=== PATIENT | female | born 1980 | race Caucasian/White ===

== ENCOUNTER → 2020-03-18 14:54 | Outpatient (BNVA) | payer OTHER, SELFPAY | PROVIDERS: PCP Pediatrics; Visit Provider Obstetrics & Gynecology | DX: N94.6 Dysmenorrhea, unspecified (principal); R10.2 Pelvic and perineal pain | CPT/HCPCS: 99203 ==

== ENCOUNTER 2020-08-05 17:03 | Emergency (ER) | payer OTHER, SELFPAY ==
--- NOTE | ~2020-08-05 | XR_ITS ---
EXAMINATION: XR LUMBOSACRAL SPINE CLINICAL INFORMATION: Severe back pain status post fall 4 weeks ago. COMPARISON: None TECHNIQUE: Three views of the lumbosacral spine. FINDINGS: Transitional anatomy is seen with rudimentary ribs at L1. Partial lumbarization of S1 is noted. There is normal lumbar lordosis and spinal alignment. Mild disc space narrowing is seen at L4-L5 and L5-S1. Surgical clips overlie the right upper quadrant. XR/XR lumbar spine 2-3V IMPRESSION: 1. Transitional anatomy as detailed above. Care and numbering of lumbar levels is recommended. 2. L4-L5 and L5-S1 mild degenerative disc disease.
[2020-08-05 17:45] VITALS: BP 112/80; PULSE 100; RESP 18; TEMP 36.4; O2SAT 98; BMI 45.7
[2020-08-05 18:31] VITALS: BP 163/78; PULSE 100; RESP 17; TEMP 36.8; O2SAT 98
--- NOTE | 2020-08-05 19:34 | ED_ITS ---
HPI - Back Pain/Injury General Chief Complaint: Back Pain/Injury Stated Complaint: Back pain Time Seen by Provider: 08/05/20 19:32 Source: patient Mode of arrival: ambulatory Limitations: no limitations History of Present Illness HPI Narrative: 39-year-old female came in with few weeks history of low back pain radiating to her left lower extremities, patient reported fall 4 weeks ago but pain did not start until she fell. Declined any history of IV drug abuse, no fever, having controlled bowel movement and urination, however patient documented urinary incontinence at night time because patient cannot get fast enough from bed to the bathroom due to severe lower back pain, patient otherwise stated she has a good control over her urination and bowel movement. Related Data Home Medications Medication Instructions Recorded Confirmed buprenorphine 2 mg-naloxone 0.5 mg 1 film BUCCAL DAILY 03/18/20 sublingual film buprenorphine 8 mg-naloxone 2 mg 1 film BUCCAL DAILY 03/18/20 sublingual film dextroamphetamine-amphetamine ER 20 mg PO DAILY 03/18/20 20 mg 24hr capsule,extend release lorazepam 1 mg tablet 1 mg PO DAILY PRN 03/18/20 sertraline 100 mg tablet 100 mg PO DAILY 03/18/20 topiramate 100 mg tablet 100 mg PO BID tab 03/18/20 Previous Rx's Medication Instructions Recorded ibuprofen 600 mg PO Q8H PRN #20 tab 08/05/20 Allergies Allergy/AdvReac Type Severity Reaction Status Date / Time varenicline [From CHANTIX] Allergy Intermediate HIVES Verified 08/05/20 19:50 Review of Systems Review of Systems: All other systems are reviewed and are negative Constitutional: Reports as per HPI and Reports no additional constitutional complaints Eyes: Reports as per HPI and Reports no additional eye complaints Reports system reviewed and no additional complaints, except as documented Cardiovascular: Reports as per HPI and Reports no additional cardiovascular complaints Respiratory: Reports as per HPI and Reports no additional respiratory complaints Gastrointestinal: Reports as per HPI and Reports no additional gastrointestinal complaints Genitourinary: Reports no additional female genitourinary complaints Musculoskeletal: Reports no additional musculoskeletal complaints Skin/Breast: Reports system reviewed and no additional complaints, except as docu Psychiatric: Reports no additional psychiatric complaints Endocrine: Reports no additional endocrine complaints Hematologic/Lymphatic: Reports no additional hematologic/lymphatic complaints Allergic/Immunologic: Reports no additional allergic/immunologic complaints Reports system reviewed and no additional complaints, except as documented and Reports Abnormal speech present PMFSH Past Medical History Medical History History of asthma History of depression Surgical History History of loop electrical excision procedure (LEEP) Hx of tonsillectomy Family History Family History Mother Breast cancer Maternal Grandmother Heart failure Breast cancer Social History Social History Alcohol intake: never Smoking Status: Current every day smoker Tobacco Type: Cigarette Cigarettes Per Day: 5 Years Smoked: 20 Advance Directives: No Advance Directives Information Provided: No Sexual orientation: Straight/Heterosexual Gender identity: female Physical Exam Vital Signs: Vital Signs: Last Vital Signs Temp 98.3 F 08/05/20 18:31 Pulse 100 08/05/20 18:31 Resp 17 08/05/20 18:31 BP 163/78 H 08/05/20 18:31 Pulse Ox 98 08/05/20 18:31 Body Mass Index 45.7 Vital signs have been reviewed as appeared to be correct. Blood pressure in the high range. Heart rate normal. Respiration rate normal. Temperature normal. Oxygen saturation normal. Appearance: Alert. Oriented X3. acute distress due to low back pain.. Head: Normal external exam. Normocephalic. Atraumatic. No Andrews signs noted. No raccoon eyes noted Eyes: PERRLA. EOMI. Conjunctiva and sclera normal. Eyelids normal. ENT: TM's Normal. Pharynx normal. Uvula midline. Moist mucous membranes. No trismus noted. No drooling noted. No muffled voice noted. Neck: Normal inspection. Neck supple. FROM. No adenopathy. Thyroid Normal. No meningeal signs. No neck mass noted. CVS: Normal heart rate and rhythm. Heart sound normal. No murmurs noted. Pulses normal throughout. Respiratory: No respiratory distress. Painless inspiration. Breath sounds normal. No wheezes/rales/rhonchi noted. Chest nontender. No accessory muscle usage noted or decreased air movement noted. Abdomen: Soft and nontender. Bowel sounds normal in all 4 quadrants. No distention noted. No organomegaly noted. No visible injury noted. Back: No CVA tenderness. No focal tenderness in the midline, no step-off, no deformity. Skin: Skin warm and dry. Normal skin color. Normal skin turgor. No rashes/lesions/lacerations noted. Extremities: No lower extremity edema. Extremities exhibit normal range of motion. Extremities nontender. Neuro: Oriented X 3. No motor deficit. No sensory deficit. Reflexes normal. Able to ambulate on both toes and heels bilaterally, intact perianal sensation. Course Course Course Narrative: 39-year-old female status post fall few weeks ago then started to have low back pain radiating to the left lower extremities for few weeks progressively is worsening. Physical exam is consistent with left-sided sciatica, no neurological deficit, patient feels better after was given oxycodone/NSAIDs. Will discharge on oxycodone and ibuprofen. MDM - Back Pain/Injury Lab Data Attestation: I reviewed the patient's lab results. Labs: Lab Results 08/05/20 08/05/20 Range/Units 19:47 19:48 Urine Color YELLOW Urine Appearance CLEAR Urine pH 5.5 (5.0-8.0) Ur Specific [place] >= 1.030 H (1.005-1.025) Urine Protein NEG (NEG-TRACE) MG/DL Urine Glucose (UA) NEG (NEG) MG/DL Urine Ketones 5 (NEG) MG/DL Urine Blood NEG (NEG) Urine Nitrite NEG (NEG) Ur Leukocyte Esterase NEG (NEG) Urine Test NEGATIVE (NEGATIVE) Imaging Data Lumbar spine x-ray: Radiologist's impression: Transitional anatomy is seen with rudimentary ribs at L1. Partial lumbarization of S1 is noted. There is normal lumbar lordosis and spinal alignment. Mild disc space narrowing is seen at L4-L5 and L5-S1. Surgical clips overlie the right upper quadrant. Discharge Plan Discharge Clinical Impression: Lumbar radiculopathy, Sciatica Patient Disposition: Home, Self-Care Instructions: Lumbar Radiculopathy (ED) Prescriptions: New ibuprofen 600 mg tablet 600 mg PO Q8H PRN (Reason: pain) Qty: 20 RF: 0 No Action topiramate 100 mg tablet 100 mg PO BID RF: 0 sertraline [Zoloft] 100 mg tablet 100 mg PO DAILY RF: 0 dextroamphetamine-amphetamine [Adderall XR] 20 mg capsule,extended release 24hr 20 mg PO DAILY RF: 0 lorazepam 1 mg tablet 1 mg PO DAILY PRNRF: 0 buprenorphine-naloxone [Suboxone] 8-2 mg film 1 film buccal DAILY RF: 0 buprenorphine-naloxone [Suboxone] 2-0.5 mg film 1 film buccal DAILY RF: 0 Referrals: Renu Mchugh MD [Primary Care Provider] - 2 days
[2020-08-05] MEDS: oxyCODONE HCl Immed Release 5 MG TABLET 10 MG PO (19:50)
[2020-08-05 19:57] LABS: Glucose Urine UA NEG (NEG); Leukocyte Esterase Urine NEG (NEG); Nitrite Urine NEG (NEG); PH 5.5 (5.0-8.0); Specific Gravity - Urine >= 1.030 (1.005-1.025); Urine Blood NEG (NEG); Urine Ketones 5 MG/DL (NEG); Urine Protein NEG (NEG-TRACE)
[2020-08-05 19:58] LABS: Appearance Urine CLEAR; Color Urine YELLOW
[2020-08-05 19:59] LABS: UPreg QC Valid YES; Urine Pregnancy NEGATIVE (NEGATIVE)
[2020-08-05] MEDS: Ibuprofen 800 MG TABLET PO (20:07)
== END 2020-08-05 21:00 | disposition home or self-care (01) ==
PROVIDERS: Emergency Provider Emergency Medicine; PCP Pediatrics
DX: M54.16 Radiculopathy, lumbar region (principal); M54.42 Lumbago with sciatica, left side; F17.210 Nicotine dependence, cigarettes, uncomplicated
CPT/HCPCS: 72100; 81003; 81025; 99283; 99284

== ENCOUNTER 2020-08-14 12:31 | Emergency (ER) | payer OTHER, SELFPAY ==
--- NOTE | ~2020-08-14 | MR_ITS ---
EXAMINATION: MR LUMBAR SPINE WITHOUT CONTRAST CLINICAL INFORMATION: Lower back pain radiating to left lower extremity. Numbness. COMPARISON: None TECHNIQUE: MRI of the lumbar spine was obtained using routine sequences without contrast. FINDINGS: The lumbar vertebral bodies maintain normal heights and alignment. There is disc height loss at L4-L5 and L5-S1. No subchondral marrow edema is seen. The distal spinal cord appears normal. The conus medullaris terminates normally at the L2 level. The visualized paraspinal muscles and intra-abdominal and pelvic contents are within normal limits. SPINAL LEVELS: T11-T12: Right paracentral/foraminal protrusion resulting in mild to moderate right-sided neural foraminal stenosis without foraminal nerve root compression. Mild flattening the right ventral thecal sac without significant narrowing of the spinal canal. L1-L2: No posterior disc abnormality. No spinal canal or neural foraminal stenosis. L2-L3: No posterior disc abnormality. No spinal canal or neural foraminal stenosis. L3-L4: No posterior disc abnormality. No spinal canal or neural foraminal stenosis. L4-L5: Disc bulging with focal central extrusion causing moderate spinal canal stenosis with deformity of the ventral thecal sac and narrowing of the left more than right subarticular zones. Mild to moderate facet arthropathy. Mild bilateral neural foraminal stenosis without foraminal nerve root compression. L5-S1: Disc bulging with left subarticular protrusion causing mass effect on the traversing left S1 nerve root. Mild to moderate facet arthropathy. No foraminal nerve root compression. MR/MR lumbar spine wo con IMPRESSION: At L5-S1 there is left subarticular protrusion causing mass effect on the traversing left S1 nerve root. At L4-L5 there is central extrusion causing moderate spinal canal stenosis with deformity of the ventral thecal sac with narrowing of the subarticular zones. At T11-T12 there is right paracentral/foraminal protrusion causing mild to moderate right-sided neural foraminal stenosis without foraminal nerve root compression.
[2020-08-14 12:34] VITALS: BP 147/90; PULSE 114; RESP 18; TEMP 37.1; O2SAT 97; BMI 45.7
--- NOTE | 2020-08-14 13:47 | ED.BACK ---
HPI - Back Pain/Injury General Chief Complaint: Back Pain/Injury Stated Complaint: left leg pain,no inj Time Seen by Provider: 08/14/20 12:48 Source: patient and family Mode of arrival: ambulatory Limitations: no limitations History of Present Illness HPI Narrative: 39-year-old female with a past medical history of opioid addiction currently on Suboxone, obesity, anxiety, depression and asthma presenting to the ED with complaints of lower back pain radiating to her left buttocks/left lower extremity to the left ankle for the past 1-2 months worse today despite taking multiple [id number] medications and steroids. She also reports that she had urinary incontinence due to she is unable to make it to the bathroom fast enough due to her back pain. Denies any history of IV drug usage, cancer, back surgery, kidney stones, fevers, incontinence or retention of bowels, hematuria, abdominal pain or any new injuries complaints or concerns at this time. MD elicited complaint: back pain Pertinent past history: prior back pain Onset (ago): week(s) (For the past few weeks worse today) Timing: constant and progressively worsening Severity: severe Pain scale (0-10): 10 Similar Symptoms Previously: Yes Quality: aching Location: lumbar spine Radiation: left leg below the knee Exacerbating factors: movement, supine positioning, sitting upright and walking Relieving factors: none Context: fall (Approximately 1-2 months ago) Associated symptoms: numbness and urinary incontinence Treatments prior to arrival: other (She reports she has used multiple [id number] medication and steroids and no symptomatic relief) Work related injury: No Related Data Home Medications Medication Instructions Recorded Confirmed buprenorphine 2 mg-naloxone 0.5 mg 1 film BUCCAL DAILY 03/18/20 sublingual film buprenorphine 8 mg-naloxone 2 mg 1 film BUCCAL DAILY 03/18/20 sublingual film dextroamphetamine-amphetamine ER 20 mg PO DAILY 03/18/20 20 mg 24hr capsule,extend release lorazepam 1 mg tablet 1 mg PO DAILY PRN 03/18/20 sertraline 100 mg tablet 100 mg PO DAILY 03/18/20 topiramate 100 mg tablet 100 mg PO BID tab 03/18/20 Previous Rx's Medication Instructions Recorded ibuprofen 600 mg PO Q8H PRN #20 tab 08/05/20 acetaminophen [Tylenol Extra 1,000 mg PO QID PRN #14 tab 08/14/20 Strength] cyclobenzaprine 10 mg PO Q8H #20 tab 08/14/20 ketorolac 10 mg PO Q8H PRN #20 tab 08/14/20 lidocaine [Lidoderm] 1 patch TOPICAL DAILY #15 ea 08/14/20 oxycodone 5 mg PO BID PRN #20 tab 08/14/20 prednisone 40 mg PO DAILY 5 Days #10 tab 08/14/20 Allergies Allergy/AdvReac Type Severity Reaction Status Date / Time varenicline [From CHANTIX] Allergy Intermediate HIVES Verified 08/14/20 12:34 Review of Systems Review of Systems: Constitutional : No trauma, No Weight loss, No Fever, No Chills, ENT/Mouth : No Hearing loss, No Ear Pain, No Nasal Congestion, No Sinus Pain, No Hoarseness, No sore throat, No Rhinorrhea, No Swallowing Difficulty Cardiovascular : No Chest Pain, No SOB Respiratory : No Cough, No Dyspnea Gastrointestinal : No Nausea, No Vomiting, No Diarrhea, No abdominal Pain, No Hematochezia, No Melena Genitourinary : + Urinary Incontience, No Dysuria, No Urinary Frequency, No Hematuria, No Bowel Incontinence/retention, No urinary tension. Musculoskeletal : + Back pain, No neck pain, No joint stiffness, No joint swelling Skin : No Skin Lesions, No rash or signs of infection Neuro : + paresthesias/numbness to left lower extremity, No Weakness, No radiation, No headache, no loss of bowel habits, no saddle anesthesia, Focal weakness, No radiation Denies history of IV drug usage. Yes all other systems are reviewed and are negative [facility] Past Medical History Attestation statement: The following information was validated with the patient. Medical History Opiate addiction Surgical History History of loop electrical excision procedure (LEEP) Hx of tonsillectomy Family History Family History Mother Breast cancer Maternal Grandmother Heart failure Breast cancer Social History Social History Alcohol intake: never Smoking Status: Current every day smoker Tobacco Type: Cigarette Cigarettes Per Day: 5 Years Smoked: 20 Advance Directives: No Advance Directives Information Provided: No Sexual orientation: Straight/Heterosexual Gender identity: female Physical Exam Vital Signs: Vital Signs: Last Vital Signs Temp 98.7 F 08/14/20 12:34 Pulse 114 H 08/14/20 12:34 Resp 18 08/14/20 12:34 BP 147/90 H 08/14/20 12:34 Pulse Ox 97 08/14/20 12:34 Body Mass Index 45.7 vital signs have been reviewed as normal and appeared to be correct. Blood pressure hypertensive at 147/90. Heart rate tachycardic at 114. Respiration rate normal. Temperature normal. Oxygen saturation normal. Appearance: Alert. Oriented X3. No acute distress. Head: Normal external exam. Normocephalic. Atraumatic. Eyes: PERRLA. EOMI. Conjunctiva and sclera normal. Eyelids normal. ENT: EAC normal. TM's Normal. Pharynx normal. Uvula midline. Moist mucous membranes. No trismus noted. No drooling noted. No muffled voice noted. Neck: Normal inspection. Neck supple. FROM. No adenopathy. Thyroid Normal. No meningeal signs. No neck mass noted. CVS: Normal heart rate and rhythm. Heart sound normal. No murmurs noted. Pulses normal throughout. Respiratory: No respiratory distress. Painless inspiration. Breath sounds normal. No wheezes/rales/rhonchi noted. Chest nontender. No accessory muscle usage noted or decreased air movement noted. Abdomen: Soft and nontender. Bowel sounds normal in all 4 quadrants. No distention noted. No organomegaly noted. No visible injury noted. Back: No CVA tenderness. Full range of motion noted. No obvious deformities, or edema. Mild para-spinal muscular tenderness from lumbar region to coccyx. Full ROM in back and lower extremities. 5/5 strength hip extension/flexion, abduction, adduction. Mild Lumbar pain with hip flexion against resistance. Straight leg raise test negative on right; Straight leg raise test negative on left; Reflexes normal ankle and knee bilaterally; EHL motor strength normal bilaterally. No rashes/lesion/induration/fluctuance or signs of infection noted. : Senior Information Security Consultant present Yana, PCT. Normal external visual exam. Normal sphincter tone and sensation. No external or internal hemorrhoids noted. Not consistent with rectal prolapse/fecal impaction. No lesions/anal fissures/fistula/laceration/excoriations/mass or anal tenderness noted. Normal exam. Skin: Skin warm and dry. Normal skin color. Normal skin turgor. No rashes/lesions/lacerations noted. Extremities: No lower extremity edema. Extremities exhibit normal range of motion. Extremities nontender. Able to shrug shoulders bilaterally and keep up against resistance. Neuro: Oriented X 3. No motor deficit. No sensory deficit. Reflexes normal. Moving all extremities. No focal motor deficits. Cranial nerves II-XI intact bilaterally. Gait normal. Strength 5/5 throughout. No tremor noted. No fasciculations noted. No rigidity noted. Muscle tone normal throughout. No asterixis noted. Course Course Course Narrative: Pt c likely muscular pain, but could be herniated disc. Neuro exam shows no deficits. Not c/w Pyelo/UTI/kidney stone/spinal fx. Not c/w AAA/epidural abscess/dissection. No high risk Hx (Incont, fever, immunosupp, recent surgery/LP, coag, wt loss, puls mass, hx/o Ca, TB, or IVDU) although due to recent trauma patient reporting that she is having urinary incontinence will obtain an MRI of lumbar spine to evaluate for acute processes. Obtain labs, UA, UHCG. Provide 2 mg of IM Dilaudid, 30 mg of IM Toradol and 4 mg of Zofran and then re-evaluate. Reevaluation(s) Reevaluation #1: - elevated white blood cell count at 12,000. Otherwise all other labs are within normal limits. - MRI of lumbar spine without contrast revealed IMPRESSION: At L5-S1 there is left subarticular protrusion causing mass effect on the traversing left S1 nerve root. At L4-L5 there is central extrusion causing moderate spinal canal stenosis with deformity of the ventral thecal sac with narrowing of the subarticular zones. At T11-T12 there is right paracentral/foraminal protrusion causing mild to moderate right-sided neural foraminal stenosis without foraminal nerve root compression. - therefore I consulted with Marcial Bird PA-C at [facility] and neurosurgeon and he reviewed the patient's chart including labs and MRI report and he reported as long as I felt comfortable with the patient's exam which I a.m. she has normal rectal tone/normal rectal sensation and a normal steady gait and full sensation in bilateral lower extremities no focal neuro deficits were noted or weakness therefore we made a plan to discharge her and he will see her in the office on [address] in [facility] on Sunday at 2:00pm. - therefore I instructed patient to discontinue her Suboxone while she is on the pain medications and to return if she has any worsening symptoms including urinary incontinence where she cannot feel that she actually went on herself not where she can not make it on time due to her back pain. Patient understands and agrees with this plan. Will DC home at this time. Time: 16:20 [facility] - Back Pain/Injury Medical Records Attestation: I reviewed the patient's medical records. Lab Data Attestation: I reviewed the patient's lab results. Result diagrams: 08/14/20 15:36 08/14/20 15:36 Labs: Lab Results 08/14/20 08/14/20 08/14/20 Range/Units 15:36 15:36 15:36 WBC 12.0 H (4.8-10.8) X10*3/uL RBC 4.92 (4.20-5.50) X10*6/uL Hgb 13.3 (12.0-16.0) g/dl Hct 42.6 (37-47) % MCV 86.6 (80-98) fL MCH 27.0 (27.0-33.0) pg MCHC 31.2 (31.0-35.0) g/dl RDW 14.3 (11.0-16.0) % Plt Count 352 (160-400) X10*3/uL MPV 10.3 (9.4-12.3) fL Immature Gran % (Auto) 0.3 (0.0-0.4) % Neut % (Auto) 73.3 H (45-73) % Lymph % (Auto) 22.3 (20-40) % Divide % (Auto) 3.7 (2-11) % Eos % (Auto) 0.2 (0-4) % Baso % (Auto) 0.2 (0-2) % Lymph # (Auto) 2.7 (1.2-4.9) X10*3/uL Divide # (Auto) 0.5 (0.1-1.2) X10*3/uL Eos # (Auto) 0.0 (0.0-0.4) X10*3/uL Baso # (Auto) 0.0 (0.0-0.2) X10*3/uL Abs Immat Gran (auto) 0.04 H (0.00-0.03) X10*3/uL Absolute Neuts (auto) 8.8 H (2.0-8.3) X10*3/uL Absolute Nucleated RBC 0.000 (0.0-0.012) X10*3/uL Nucleated RBC % (auto) 0.0 (0.0-0.2) /100WBC PT 13.2 H (10.8-13.0) SEC INR 1.1 (0.9-1.1) Sodium 138 (135-145) mmol/L Potassium 4.4 (3.3-5.1) mmol/L Chloride 108 (96-108) mmol/L Carbon Dioxide 20 L (22-29) mmol/L Anion Gap 14 (12-20) BUN 16 (9-16) mg/dL Creatinine 0.77 (0.5-1.4) mg/dL Estim Creat Clear Calc 119.1 Estimated GFR > 60 Random Glucose 92 (60-115) mg/dL Calcium 9.1 (8.4-10.2) mg/dL Imaging Data MRI lumbar spine without contrast: Attestation: I personally reviewed and interpreted this imaging study as follows: Radiologist's impression: FINDINGS: The lumbar vertebral bodies maintain normal heights and alignment. There is disc height loss at L4-L5 and L5-S1. No subchondral marrow edema is seen. The distal spinal cord appears normal. The conus medullaris terminates normally at the L2 level. The visualized paraspinal muscles and intra-abdominal and pelvic contents are within normal limits. SPINAL LEVELS: T11-T12: Right paracentral/foraminal protrusion resulting in mild to moderate right-sided neural foraminal stenosis without foraminal nerve root compression. Mild flattening the right ventral thecal sac without significant narrowing of the spinal canal. L1-L2: No posterior disc abnormality. No spinal canal or neural foraminal stenosis. L2-L3: No posterior disc abnormality. No spinal canal or neural foraminal stenosis. L3-L4: No posterior disc abnormality. No spinal canal or neural foraminal stenosis. L4-L5: Disc bulging with focal central extrusion causing moderate spinal canal stenosis with deformity of the ventral thecal sac and narrowing of the left more than right subarticular zones. Mild to moderate facet arthropathy. Mild bilateral neural foraminal stenosis without foraminal nerve root compression. L5-S1: Disc bulging with left subarticular protrusion causing mass effect on the traversing left S1 nerve root. Mild to moderate facet arthropathy. No foraminal nerve root compression. MR/MR lumbar spine wo con IMPRESSION: At L5-S1 there is left subarticular protrusion causing mass effect on the traversing left S1 nerve root. At L4-L5 there is central extrusion causing moderate spinal canal stenosis with deformity of the ventral thecal sac with narrowing of the subarticular zones. At T11-T12 there is right paracentral/foraminal protrusion causing mild to moderate right-sided neural foraminal stenosis without foraminal nerve root compression. Critical Care Time Critical Care Time Critical Care Time: Yes Total Critical Care Time: 60 Attestation: I personally attest to this time spent taking care of the patient Discharge Plan Discharge Clinical Impression: Back pain associated with peripheral numbness, Lumbar radiculopathy, Sciatica, Central stenosis of spinal canal, Lumbar foraminal stenosis Patient Disposition: Home, Self-Care Instructions: Sciatica (ED), Lumbar Radiculopathy (ED), Lower Back Exercises (ED) Additional Instructions: Follow-up if you develop any new or worsening symptoms especially urinary incontinence where you do not feel that you have to urinate or bowel incontinence or retention where you cannot have a bowel movement or any weakness of the lower extremity where you can actually not walk. Follow-up on Sunday with your appointment with physician payroll and benefits assistant Marcial Bird neurosurgeon at [facility]. Again return if any new or worsening symptoms. I would not take the Suboxone while you are on the narcotics. Prescriptions: New cyclobenzaprine 10 mg tablet 10 mg PO Q8H Qty: 20 RF: 0 ketorolac 10 mg tablet 10 mg PO Q8H PRN (Reason: pain) Qty: 20 RF: 0 lidocaine [Lidoderm] 5 % adhesive patch,medicated 1 patch topical DAILY Qty: 15 RF: 0 oxycodone 5 mg tablet 5 mg PO BID PRN (Reason: pain) Qty: 20 RF: 0 acetaminophen [Tylenol Extra Strength] 500 mg tablet 1,000 mg PO QID PRN (Reason: fever or pain) Qty: 14 RF: 0 prednisone 20 mg tablet 40 mg PO DAILY 5 Days Qty: 10 RF: 0 No Action ibuprofen 600 mg tablet 600 mg PO Q8H PRN (Reason: pain) Qty: 20 RF: 0 topiramate 100 mg tablet 100 mg PO BID RF: 0 sertraline [Zoloft] 100 mg tablet 100 mg PO DAILY RF: 0 dextroamphetamine-amphetamine [Adderall XR] 20 mg capsule,extended release 24hr 20 mg PO DAILY RF: 0 lorazepam 1 mg tablet 1 mg PO DAILY PRNRF: 0 buprenorphine-naloxone [Suboxone] 8-2 mg film 1 film buccal DAILY RF: 0 buprenorphine-naloxone [Suboxone] 2-0.5 mg film 1 film buccal DAILY RF: 0 Referrals: Marcial Bird PA-C [Physician Nurse Office] - 2 days (You have an appointment with Marcial Bird PA-C at 14:00 at the above address [phone]. Please do not miss your appointment.)
[2020-08-14] MEDS: Ketorolac Tromethamine 30 MG/ML VIAL IM (13:58)
[2020-08-14] MEDS: HYDROmorphone HCl 2 MG/ML VIAL IM (13:58)
[2020-08-14 15:41] LABS: MANUAL DIFF FLAG NO
[2020-08-14 15:58] LABS: Basophils Percent Auto 0.2 % (0-2); Eosinophils Percent Auto 0.2 % (0-4); Hematocrit 42.6 % (37-47); Hemoglobin 13.3 g/dl (12.0-16.0); Imm Gran Abs Auto 0.04 X10*3/uL (0.00-0.03); Imm Gran Pct Auto 0.3 % (0.0-0.4); Lymphocytes Absolute Auto 2.7 X10*3/uL (1.2-4.9); Lymphocytes Percent Auto 22.3 % (20-40); Mean Corpuscular HGB Conc 31.2 g/dl (31.0-35.0); Mean Corpuscular Volume 86.6 fL (80-98); Mean Platelet Volume 10.3 fL (9.4-12.3); Monocytes Absolute Auto 0.5 X10*3/uL (0.1-1.2); Monocytes Percent Auto 3.7 % (2-11); Neutrophils Absolute Auto 8.8 X10*3/uL (2.0-8.3); Neutrophils Percent Auto 73.3 % (45-73); Platelet Count 352 X10*3/uL (160-400); Red Blood Count 4.92 X10*6/uL (4.20-5.50); Red Cell Distribution Width 14.3 % (11.0-16.0)
[2020-08-14 16:07] LABS: INTERNATIONAL NORM RATIO 1.1 (0.9-1.1); Prothrombin Time 13.2 SEC (10.8-13.0)
[2020-08-14 16:12] LABS: Anion Gap 14 (12-20); Blood Urea Nitrogen 16 mg/dL (9-16); Calcium 9.1 mg/dL (8.4-10.2); Carbon Dioxide 20 mmol/L (22-29); Chloride 108 mmol/L (96-108); Creatinine Clr Calc Pharmacy 119.1; Estimated Glomerular Filt Rate > 60; Glucose Random 92 mg/dL (60-115); Potassium 4.4 mmol/L (3.3-5.1); Sodium 138 mmol/L (135-145)
[2020-08-14 17:01] LABS: HCG Quantitative < 2 mIU/mL
== END 2020-08-14 17:00 | disposition home or self-care (01) ==
PROVIDERS: Physician Assistant Medical; Emergency Provider Emergency Medicine; PCP Pediatrics
DX: M54.16 Radiculopathy, lumbar region (principal); M54.42 Lumbago with sciatica, left side; M48.061 Spinal stenosis, lumbar region without neurogenic claudication; M79.605 Pain in left leg; F17.210 Nicotine dependence, cigarettes, uncomplicated; F11.20 Opioid dependence, uncomplicated; Z71.6 Tobacco abuse counseling; Z79.899 Other long term (current) drug therapy
CPT/HCPCS: 36415; 72148; 80048; 84702; 85025; 85610; 96372; 99283; 99284; J1170; J1885

== ENCOUNTER → 2020-08-23 15:13 | Outpatient (BNVA) | payer OTHER, SELFPAY | PROVIDERS: PCP Pediatrics; Visit Provider Nurse Practitioner Family | DX: F11.20 Opioid dependence, uncomplicated (principal); M54.16 Radiculopathy, lumbar region | CPT/HCPCS: 99202 ==

== ENCOUNTER 2020-10-04 05:45 | Emergency (ER) | payer OTHER, SELFPAY ==
--- NOTE | ~2020-10-04 | CT_ITS ---
EXAMINATION: CT ABDOMEN AND PELVIS WITH CONTRAST CLINICAL INFORMATION: Abdominal pain COMPARISON: None TECHNIQUE: Multidetector volumetric images were obtained from the superior aspect of the liver through the pubic symphysis following administration 85 mL of Omnipaque 350 intravenous contrast. Sagittal and coronal reformatted images were obtained on the technologist's workstation. Oral contrast: No This CT examination was performed using dose optimization techniques as appropriate, variously including the following: *Automated exposure control *Adjustment of mA and/or kV according to patient size (this includes techniques or standardized protocols for targeted exams where dose is matched to indication/reason for exam; i.e. extremities or head) *Use of iterative reconstruction technique DLP: 1288 mGy-cm FINDINGS: LUNG BASES: The visualized lung bases are unremarkable. LIVER, GALLBLADDER, AND BILIARY TREE: The liver is normal in size, shape, and attenuation. No focal hepatic lesion or biliary ductal dilatation is present. The gallbladder has been surgically removed. PANCREAS: Unremarkable. SPLEEN: Unremarkable. ADRENAL GLANDS: Unremarkable. KIDNEYS AND URETERS: The kidneys are normal in size, shape, and attenuation. No hydronephrosis, hydroureter, or calculi seen. No perinephric stranding. BLADDER: Unremarkable. GASTROINTESTINAL TRACT: There is scattered stool and gas seen throughout the colon without distention. The small bowel loops are normal caliber. The stomach is nondistended. There is mild mural thickening distal esophagus likely secondary reflux esophagitis. ABDOMINAL WALL: No significant hernia is appreciated. LYMPH NODES: Normal. VASCULAR: Unremarkable. PELVIC VISCERA: There is anechoic 2.6 cm cyst right adnexa likely ovarian in origin. No free air or free fluid. The uterus is anteverted and appears unremarkable. OSSEOUS STRUCTURES: There is mild ventral spondylosis lower dorsal and lumbar spine. There is vacuum disc phenomena L5-S1 disc level. Moderate L4-L5 and mild L5-S1 facet joint arthropathy is noted. There is focal gas and fat stranding seen in the posterior spinal soft tissues posterior to L3-L4 disc level question surgical intervention. CT/CT abdomen pelvis w con IMPRESSION: There is no acute intra-abdominal process seen. Moderate constipation. No radiopaque urolith. Soft tissue gas in the posterior spinal soft tissues opposite to L4-L5 disc level likely from previous intervention.
[2020-10-04 05:58] VITALS: BP 134/81; PULSE 87; RESP 18; TEMP 36.4; O2SAT 99; BMI 49.1
--- NOTE | 2020-10-04 06:39 | ED_ITS ---
HPI - General Adult General Chief complaint: Back Pain/Injury Stated complaint: infection on back Time Seen by Provider: 10/04/20 06:35 Source: patient Mode of arrival: ambulatory History of Present Illness HPI narrative: 39-year-old female with history of asthma presents after having surgery on 09/08/2020 for a pinched nerve at [facility]. Patient states that shortly thereafter she began having discomfort in her lower back and noted that there was some pus draining from the site, in addition, she describes numbness and tingling into the left great toe as well as the 2nd toe since the surgery. She currently denies any bowel or bladder dysfunction or lower extremity weakness. Patient states that she followed up with the PA on 09/30 and was started on Bactrim at that time. She states that she has continued to feel unwell, nauseous, headache that is mildly alleviated by [id number] Tylenol/ibuprofen. Patient states that she continues to have purulence drainage and pain into the left superior gluteus. Related Data Home Medications Medication Instructions Recorded Confirmed buprenorphine 2 mg-naloxone 0.5 mg 1 film BUCCAL DAILY 03/18/20 sublingual film buprenorphine 8 mg-naloxone 2 mg 1 film BUCCAL DAILY 03/18/20 08/23/20 sublingual film dextroamphetamine-amphetamine ER 20 mg PO DAILY 03/18/20 08/23/20 20 mg 24hr capsule,extend release lorazepam 1 mg tablet 1 mg PO DAILY PRN 03/18/20 08/23/20 sertraline 100 mg tablet 100 mg PO DAILY 03/18/20 08/23/20 topiramate 100 mg tablet 100 mg PO BID tab 03/18/20 08/23/20 Previous Rx's Medication Instructions Recorded ibuprofen 600 mg PO Q8H PRN #20 tab 08/05/20 acetaminophen [Tylenol Extra 1,000 mg PO QID PRN #14 tab 08/14/20 Strength] cyclobenzaprine 10 mg PO Q8H #20 tab 08/14/20 ketorolac 10 mg PO Q8H PRN #20 tab 08/14/20 lidocaine [Lidoderm] 1 patch TOPICAL DAILY #15 ea 08/14/20 oxycodone 5 mg PO BID PRN #20 tab 08/14/20 prednisone 40 mg PO DAILY 5 Days #10 tab 08/14/20 Allergies Allergy/AdvReac Type Severity Reaction Status Date / Time varenicline [From CHANTIX] Allergy Intermediate HIVES Verified 08/23/20 15:24 Review of Systems Review of Systems: Pertinent positives and negatives as stated in HPI 10 point review of systems is otherwise negative. [facility] Past Medical History Source: nursing notes reviewed Medical History Opiate addiction Surgical History History of back surgery History of loop electrical excision procedure (LEEP) Hx of tonsillectomy Family History Family History Mother Breast cancer Maternal Grandmother Heart failure Breast cancer Social History Social History Alcohol intake: never Smoking Status: Current every day smoker Tobacco Type: Cigarette Cigarettes Per Day: 5 Years Smoked: 20 Advance Directives: No Advance Directives Information Provided: No Patient : No Sexual orientation: Straight/Heterosexual Gender identity: female Physical Exam Vital Signs: Vital Signs: Last Vital Signs Temp 97.6 F 10/04/20 05:58 Pulse 87 10/04/20 05:58 Resp 18 10/04/20 05:58 BP 134/81 10/04/20 05:58 Pulse Ox 99 10/04/20 05:58 Body Mass Index 49.1 VITAL SIGNS: Reviewed. GENERAL: Morbidly obese, Well developed, well nourished, mild distress. HEAD: Normocephalic/atraumatic EYES: PERRLA, EOMI OROPHARYNX: no oral lesions noted, posterior pharynx clear NECK: Supple, no adenopathy LUNGS: Normal breath sounds. No adventitious sounds or accessory muscle use. SpO2<99> CARDIOVASCULAR: Regular rate and rhythm without noted murmurs ABDOMEN: Soft, non-tender, non-distended with bowel sounds. BACK: Incision noted at approximate L4-L5 with rolled edges of incision that is open and draining purulent material which has stained the dressing, there is mild erythema to the area without noted induration, pain on palpation inferior lateral to the incision over superior gluteus EXTREMITIES: No cyanosis, clubbing or edema, palpable/symmetrical pulses. SKIN: Inspection of the skin reveals no rashes NEUROLOGIC: Alert and oriented x 4. Strength and sensation to light touch were grossly intact x 4, no increased pain noted on flexion or extension of the neck. Course Course Course Narrative: 39-year-old female with history and clinical presentation concerning for possible underlying abscess after obvious dehiscence. Labs, imaging, empiric antibiotics started. Signed out to Dr Moreira. Discharge Plan Discharge Prescriptions: No Action cyclobenzaprine 10 mg tablet 10 mg PO Q8H Qty: 20 RF: 0 ketorolac 10 mg tablet 10 mg PO Q8H PRN (Reason: pain) Qty: 20 RF: 0 lidocaine [Lidoderm] 5 % adhesive patch,medicated 1 patch topical DAILY Qty: 15 RF: 0 oxycodone 5 mg tablet 5 mg PO BID PRN (Reason: pain) Qty: 20 RF: 0 acetaminophen [Tylenol Extra Strength] 500 mg tablet 1,000 mg PO QID PRN (Reason: fever or pain) Qty: 14 RF: 0 prednisone 20 mg tablet 40 mg PO DAILY 5 Days Qty: 10 RF: 0 ibuprofen 600 mg tablet 600 mg PO Q8H PRN (Reason: pain) Qty: 20 RF: 0 topiramate 100 mg tablet 100 mg PO BID RF: 0 sertraline [Zoloft] 100 mg tablet 100 mg PO DAILY RF: 0 dextroamphetamine-amphetamine [Adderall XR] 20 mg capsule,extended release 24hr 20 mg PO DAILY RF: 0 lorazepam 1 mg tablet 1 mg PO DAILY PRNRF: 0 buprenorphine-naloxone [Suboxone] 8-2 mg film 1 film buccal DAILY RF: 0 buprenorphine-naloxone [Suboxone] 2-0.5 mg film 1 film buccal DAILY RF: 0
[2020-10-04 07:19] LABS: MANUAL DIFF FLAG NO
[2020-10-04 07:26] LABS: Basophils Percent Auto 0.4 % (0-2); Eosinophils Absolute Auto 0.3 X10*3/uL (0.0-0.4); Eosinophils Percent Auto 3.3 % (0-4); Hematocrit 41.4 % (37-47); Hemoglobin 12.9 g/dl (12.0-16.0); Imm Gran Abs Auto 0.08 X10*3/uL (0.00-0.03); Imm Gran Pct Auto 0.8 % (0.0-0.4); Lymphocytes Absolute Auto 2.5 X10*3/uL (1.2-4.9); Lymphocytes Percent Auto 24.4 % (20-40); Mean Corpuscular HGB Conc 31.2 g/dl (31.0-35.0); Mean Corpuscular Hemoglobin 27.5 pg (27.0-33.0); Mean Corpuscular Volume 88.3 fL (80-98); Mean Platelet Volume 10.2 fL (9.4-12.3); Monocytes Absolute Auto 0.5 X10*3/uL (0.1-1.2); Monocytes Percent Auto 4.5 % (2-11); Neutrophils Absolute Auto 6.8 X10*3/uL (2.0-8.3); Neutrophils Percent Auto 66.6 % (45-73); Platelet Count 340 X10*3/uL (160-400); Red Blood Count 4.69 X10*6/uL (4.20-5.50); Red Cell Distribution Width 14.2 % (11.0-16.0); White Blood Count 10.3 X10*3/uL (4.8-10.8)
[2020-10-04 07:27] LABS: INTERNATIONAL NORM RATIO 1.1 (0.9-1.1); Prothrombin Time 12.6 SEC (10.8-13.0)
[2020-10-04] MEDS: Piperacillin Sodium/Tazobactam 3.375 GM in 0.9 % Sodium Chloride 50 ML IV (07:32)
[2020-10-04] MEDS: Acetaminophen 325 MG TABLET 975 MG PO (07:32)
[2020-10-04] MEDS: Ketorolac Tromethamine 15 MG/ML VIAL IVPUSH (07:32)
[2020-10-04] MEDS: ondansetron HCL 4 MG/2 ML VIAL IVPUSH (07:32)
[2020-10-04] MEDS: LORazepam 2 MG/ML VIAL 1 MG IVPUSH (07:33)
[2020-10-04 07:44] LABS: Lactic Acid 1.3 mmol/L (0.5-2.0)
[2020-10-04 07:47] LABS: C Reactive Protein 1.18 mg/dL (< or = 0.50)
[2020-10-04 07:49] LABS: Alanine Aminotransferase 18 U/L (0-31); Albumin Level 3.9 g/dL (3.5-5.0); Alkaline Phosphatase 81 U/L (39-117); Anion Gap 11 (12-20); Aspartate Amino Transferase 15 U/L (5-31); Bilirubin Total 0.5 mg/dL (0.0-1.0); Blood Urea Nitrogen 10 mg/dL (9-16); Carbon Dioxide 23 mmol/L (22-29); Chloride 107 mmol/L (96-108); Creatinine Clr Calc Pharmacy 119.9; Estimated Glomerular Filt Rate > 60; Glucose Random 118 mg/dL (60-115); Potassium 3.9 mmol/L (3.3-5.1); Sodium 137 mmol/L (135-145)
[2020-10-04 08:11] LABS: Erythrocyte Sedimentation Rate 23 MM/HR (0-20)
[2020-10-04] MEDS: vancomycin HCL 1,000 MG in 0.9 % Sodium Chloride 250 ML 270 MG IV (08:21)
[2020-10-04 08:28] LABS: Glucose Urine UA NEG (NEG); Leukocyte Esterase Urine NEG (NEG); Nitrite Urine NEG (NEG); Specific Gravity - Urine >= 1.030 (1.005-1.025); Urine Blood NEG (NEG); Urine Ketones NEG (NEG); Urine Protein NEG (NEG-TRACE)
[2020-10-04 08:29] LABS: Appearance Urine CLEAR; Color Urine YELLOW
[2020-10-04 08:30] LABS: UPreg QC Valid YES; Urine Pregnancy NEGATIVE (NEGATIVE)
[2020-10-04 10:55] VITALS: BP 99/49; PULSE 89; RESP 18
--- NOTE | 2020-10-04 11:10 | PC.NURSE ---
MONICA ALEGRIA FROM [facility] NEUROSURGERY PAGED AT [phone]. AWAITING CALL BACK.
== END 2020-10-04 11:50 | disposition home or self-care (01) ==
PROVIDERS: Student in an Organized Health Care Education/Training Program; Emergency Provider Emergency Medicine; PCP Pediatrics
DX: G89.18 Other acute postprocedural pain (principal); T81.31XA Disruption of external operation (surgical) wound, not elsewhere classified, initial encounter; Y92.019 Unspecified place in single-family (private) house as the place of occurrence of the external cause; L03.312 Cellulitis of back [any part except buttock and flank]; R70.0 Elevated erythrocyte sedimentation rate; F17.210 Nicotine dependence, cigarettes, uncomplicated; F11.20 Opioid dependence, uncomplicated
CPT/HCPCS: 36415; 74177; 80053; 81003; 81025; 83605; 83735; 85025; 85610; 85652; 86140; 87040; 87147; 87205; 96365; 96368; 96375; 99284; J1885; J2060; J2405; J2543; J3370

== ENCOUNTER 2021-05-16 16:09 | Emergency (ER) | payer OTHER, SELFPAY ==
--- NOTE | ~2021-05-16 | XR_ITS ---
EXAMINATION: XR MANDIBLE CLINICAL INFORMATION: Swelling. COMPARISON: None TECHNIQUE: 4 views of the mandible were obtained. FINDINGS: There are no fractures or dislocations. No bone, joint or soft tissue abnormality is demonstrated. XR/XR mandible <4V IMPRESSION: Unremarkable examination.
[2021-05-16 17:15] VITALS: BP 166/90; PULSE 85; RESP 20; TEMP 37.1; O2SAT 99; BMI 49.6
--- NOTE | 2021-05-16 17:16 | ED.DENTAL ---
HPI - Dental/Oral General Chief complaint: Dental/Oral Stated complaint: mouth infection Time Seen by Provider: 05/16/21 17:14 Related Data Home Medications Medication Instructions Recorded Confirmed buprenorphine 2 mg-naloxone 0.5 mg 1 film BUCCAL DAILY 03/18/20 sublingual film (Suboxone) buprenorphine 8 mg-naloxone 2 mg 1 film BUCCAL DAILY 03/18/20 08/23/20 sublingual film (Suboxone) dextroamphetamine-amphetamine ER 20 mg PO DAILY 03/18/20 08/23/20 20 mg 24hr capsule,extend release (Adderall XR) lorazepam 1 mg tablet 1 mg PO DAILY PRN 03/18/20 08/23/20 sertraline 100 mg tablet (Zoloft) 100 mg PO DAILY 03/18/20 08/23/20 topiramate 100 mg tablet 100 mg PO BID tab 03/18/20 08/23/20 Previous Rx's Medication Instructions Recorded ibuprofen 600 mg tablet 600 mg PO Q8H PRN #20 tab 08/05/20 acetaminophen 500 mg tablet 1,000 mg PO QID PRN #14 tab 08/14/20 (Tylenol Extra Strength) cyclobenzaprine 10 mg tablet 10 mg PO Q8H #20 tab 08/14/20 ketorolac 10 mg tablet 10 mg PO Q8H PRN #20 tab 08/14/20 lidocaine 5 % topical patch 1 patch TOPICAL DAILY #15 ea 08/14/20 (Lidoderm) oxycodone 5 mg tablet 5 mg PO BID PRN #20 tab 08/14/20 prednisone 20 mg tablet 40 mg PO DAILY 5 Days #10 tab 08/14/20 amoxicillin 875 mg-potassium 1 tab PO Q12H 10 Days #20 tab 05/16/21 clavulanate 125 mg tablet (Augmentin) ketorolac 10 mg tablet 10 mg PO Q6H 5 Days #20 tab 05/16/21 Allergies Allergy/AdvReac Type Severity Reaction Status Date / Time varenicline [From CHANTIX] Allergy Intermediate HIVES Verified 08/23/20 15:24 [facility] Past Medical History Medical History Opiate addiction Surgical History History of back surgery History of loop electrical excision procedure (LEEP) Hx of tonsillectomy Family History Family History Mother Breast cancer Maternal Grandmother Heart failure Breast cancer Social History Social History Alcohol intake: never Cigarettes Per Day: 5 Years Smoked: 20 Advance Directives: No Advance Directives Information Provided: No Patient : No Sexual orientation: Straight/Heterosexual Gender identity: Female Physical Exam Vital Signs: Vital Signs: Last Vital Signs Temp 98.8 F 05/16/21 17:15 Pulse 85 05/16/21 21:51 Resp 16 05/16/21 21:51 BP 129/75 05/16/21 21:51 Pulse Ox 98 05/16/21 21:51 BMI result Body Mass Index 49.6 Course Course Course Narrative: 17:15pm - 40-year-old female presenting to the ED with complaints of a broken molar that is causing her severe pain for the past week worse today with associated facial swelling and pain radiating to her left ear. Does not have a dentist at this time to follow-up with. On exam patient appears to have possible dental abscess when I palpated mild purulent drainage was excreted. No trismus/drooling/stridor. Patient tolerates secretions well. At this time labs were ordered. Patient will be sent back to the waiting room to be further evaluated and treated in emergency minor care. Patient understands agrees to this plan. MDM - Dental/Oral Lab Data Result diagrams: 05/16/21 20:31 05/16/21 20:31 Labs: Lab Results 05/16/21 05/16/21 05/16/21 Range/Units 20:31 20:31 20:31 WBC 11.7 H (4.8-10.8) X10*3/uL RBC 4.21 (4.20-5.50) X10*6/uL Hgb 11.6 L (12.0-16.0) g/dl Hct 36.7 L (37.0-47.0) % MCV 87.2 (80.0-98.0) fL MCH 27.6 (27.0-33.0) pg MCHC 31.6 (31.0-35.0) g/dl RDW 13.9 (11.0-16.0) % Plt Count 299 (160-400) X10*3/uL MPV 10.3 (9.4-12.3) fL Immature Gran % (Auto) 0.4 (0.0-0.4) % Neut % (Auto) 69.0 (45-73) % Lymph % (Auto) 23.1 (20-40) % [place] % (Auto) 5.9 (2-11) % Eos % (Auto) 1.3 (0-4) % Baso % (Auto) 0.3 (0-2) % Lymph # (Auto) 2.7 (1.2-4.9) X10*3/uL [place] # (Auto) 0.7 (0.1-1.2) X10*3/uL Eos # (Auto) 0.2 (0.0-0.4) X10*3/uL Baso # (Auto) 0.0 (0.0-0.2) X10*3/uL Abs Immat Gran (auto) 0.05 H (0.00-0.03) X10*3/uL Absolute Neuts (auto) 8.1 (2.0-8.3) x10*3/uL Absolute Nucleated RBC 0.000 (0.0-0.012) X10*3/uL Nucleated RBC % (auto) 0.0 (0.0-0.2) /100WBC ESR 34 H (0-20) MM/HR Sodium 139 (135-145) mmol/L Potassium 3.6 (3.3-5.1) mmol/L Chloride 110 H (96-108) mmol/L Carbon Dioxide 23 (22-29) mmol/L Anion Gap 10 L (12-20) BUN 11 (9-16) mg/dL Creatinine 0.72 (0.5-1.4) mg/dL Estim Creat Clear Calc 137.5 Estimated GFR > 60 Random Glucose 103 (60-115) mg/dL Calcium 9.1 (8.4-10.2) mg/dL Magnesium 1.9 (1.6-2.6) mg/dL Total Bilirubin 0.3 (0.0-1.0) mg/dL AST 15 (5-31) U/L ALT 17 (0-31) U/L Alkaline Phosphatase 70 (39-117) U/L C-Reactive Protein 4.35 H (< or = 0.50) mg/dL Total Protein 6.6 (6.5-8.0) g/dL Albumin 3.5 (3.5-5.0) g/dL Beta HCG, Quant < 2 mIU/mL Discharge Plan Discharge Clinical Impression: Toothache, Dental caries, Dental abscess Patient Disposition: Home, Self-Care Instructions: Dental Abscess (ED), Toothache (ED) Additional Instructions: You were evaluated for dental caries and dental pain. Please follow-up with a dentist. Take Augmentin twice a day for the next 10 days. I prescribed Toradol, please follow the instructions. I gave you your 1st IM dose of Toradol 60 mg in the emergency department. Please do not take any Aleve or ibuprofen with this medication. You may take Tylenol every 6 hours as needed for breakthrough pain. Do not exceed 3000 mg of Tylenol. Please continue to use [facility] Orajel as needed for comfort. Follow the instructions on the package. X-rays are negative for acute findings. Labs are unremarkable, does show an elevated white count of 11.7 could possibly be consistent with dental infection. Thank you for choosing this emergency department for evaluation. Please follow-up with primary care physician as needed. Return to the emergency department for any new, concerning, or worsening symptoms. Prescriptions: New amoxicillin-pot clavulanate [Augmentin] 875-125 mg tablet 1 tab PO Q12H 10 Days Qty: 20 RF: 0 ketorolac 10 mg tablet 10 mg PO Q6H 5 Days Qty: 20 RF: 0 No Action cyclobenzaprine 10 mg tablet 10 mg PO Q8H Qty: 20 RF: 0 ketorolac 10 mg tablet 10 mg PO Q8H PRN (Reason: pain) Qty: 20 RF: 0 lidocaine [Lidoderm] 5 % adhesive patch,medicated 1 patch topical DAILY Qty: 15 RF: 0 oxycodone 5 mg tablet 5 mg PO BID PRN (Reason: pain) Qty: 20 RF: 0 acetaminophen [Tylenol Extra Strength] 500 mg tablet 1,000 mg PO QID PRN (Reason: fever or pain) Qty: 14 RF: 0 prednisone 20 mg tablet 40 mg PO DAILY 5 Days Qty: 10 RF: 0 ibuprofen 600 mg tablet 600 mg PO Q8H PRN (Reason: pain) Qty: 20 RF: 0 topiramate 100 mg tablet 100 mg PO BID RF: 0 sertraline [Zoloft] 100 mg tablet 100 mg PO DAILY RF: 0 dextroamphetamine-amphetamine [Adderall XR] 20 mg capsule,extended release 24hr 20 mg PO DAILY RF: 0 lorazepam 1 mg tablet 1 mg PO DAILY PRNRF: 0 buprenorphine-naloxone [Suboxone] 8-2 mg film 1 film buccal DAILY RF: 0 buprenorphine-naloxone [Suboxone] 2-0.5 mg film 1 film buccal DAILY RF: 0 Stand Alone Forms: Dental Emergency Numbers Interventions: ED Discharge Assessment Last Done: 05/16/21 21:53 Discharge Date/Time: 05/16/21 21:54
[2021-05-16] MEDS: Acetaminophen 325 MG TABLET 650 MG PO (18:43)
--- NOTE | 2021-05-16 19:41 | ED.DENTAL ---
HPI - Dental/Oral General Chief complaint: Dental/Oral Stated complaint: mouth infection Time Seen by Provider: 05/16/21 17:14 Source: patient Mode of arrival: ambulatory Limitations: no limitations History of Present Illness HPI Narrative: 40-year-old female presents with left lower jaw pain suspected to be from a broken tooth. Stated that she has a known broken molar with dental caries, with flossing and noted that the tooth completely broke off. Shortly after she had pain and some swelling to the left lower jaw. Has been taking oral [id number] Orajel with poor effect. MD Complaint: tooth pain Teeth map: 1. Onset (ago): day(s) (5) Duration: constant Severity: severe Severity scale (1-10): 10 Relieving factors: nothing Exacerbating factors: chewing, cold, heat and drinking fluids Context: history of dental caries and poor dental care Associated symptoms: gum swelling Treatment prior to arrival: topical analgesic Related Data Home Medications Medication Instructions Recorded Confirmed buprenorphine 2 mg-naloxone 0.5 mg 1 film BUCCAL DAILY 03/18/20 sublingual film (Suboxone) buprenorphine 8 mg-naloxone 2 mg 1 film BUCCAL DAILY 03/18/20 08/23/20 sublingual film (Suboxone) dextroamphetamine-amphetamine ER 20 mg PO DAILY 03/18/20 08/23/20 20 mg 24hr capsule,extend release (Adderall XR) lorazepam 1 mg tablet 1 mg PO DAILY PRN 03/18/20 08/23/20 sertraline 100 mg tablet (Zoloft) 100 mg PO DAILY 03/18/20 08/23/20 topiramate 100 mg tablet 100 mg PO BID tab 03/18/20 08/23/20 Previous Rx's Medication Instructions Recorded ibuprofen 600 mg tablet 600 mg PO Q8H PRN #20 tab 08/05/20 acetaminophen 500 mg tablet 1,000 mg PO QID PRN #14 tab 08/14/20 (Tylenol Extra Strength) cyclobenzaprine 10 mg tablet 10 mg PO Q8H #20 tab 08/14/20 ketorolac 10 mg tablet 10 mg PO Q8H PRN #20 tab 08/14/20 lidocaine 5 % topical patch 1 patch TOPICAL DAILY #15 ea 08/14/20 (Lidoderm) oxycodone 5 mg tablet 5 mg PO BID PRN #20 tab 08/14/20 prednisone 20 mg tablet 40 mg PO DAILY 5 Days #10 tab 08/14/20 amoxicillin 875 mg-potassium 1 tab PO Q12H 10 Days #20 tab 05/16/21 clavulanate 125 mg tablet (Augmentin) ketorolac 10 mg tablet 10 mg PO Q6H 5 Days #20 tab 05/16/21 Allergies Allergy/AdvReac Type Severity Reaction Status Date / Time varenicline [From CHANTIX] Allergy Intermediate HIVES Verified 08/23/20 15:24 Review of Systems Review of Systems: Constitutional: No Fever, No Chills ENT/Mouth: No swallowing difficulty, no change in voice, positive dental pain, positive jaw pain, positive left lower facial swelling Eyes: No Eye Pain, No Swelling Cardiovascular: No Chest Pain, No SOB Respiratory: No Cough, No Sputum, No Wheezing, No Smoke Exposure, No Dyspnea Gastrointestinal: No Nausea, No Vomiting, No Diarrhea Genitourinary: No Dysuria Musculoskeletal: No Myalgias Skin: No rash Neuro: No Weakness, No Numbness, No Headache Yes all other systems are reviewed and are negative [facility] Past Medical History Attestation statement: The following information was validated with the patient. Source: old records reviewed Medical History Opiate addiction Surgical History History of back surgery History of loop electrical excision procedure (LEEP) Hx of tonsillectomy Family History Family History Mother Breast cancer Maternal Grandmother Heart failure Breast cancer Social History Social History Alcohol intake: never Cigarettes Per Day: 5 Years Smoked: 20 Advance Directives: No Advance Directives Information Provided: No Patient : No Sexual orientation: Straight/Heterosexual Gender identity: Female Physical Exam Vital Signs: Vital Signs: Last Vital Signs Temp 98.8 F 05/16/21 17:15 Pulse 85 05/16/21 21:51 Resp 16 05/16/21 21:51 BP 129/75 05/16/21 21:51 Pulse Ox 98 05/16/21 21:51 BMI result Body Mass Index 49.6 Appearance: Alert. Oriented X3. Mild distress. Eyes: Pupils equal, round and reactive to light. Sclera nonicteric. ENT: Pharynx normal. Multiple broken teeth with caries throughout mouth, gingivitis noted around tooth 18. No palpable mass or fluctuance. Neck: Normal inspection. Neck supple. No cervical, auricular, axillary or supraclavicular lymphadenopathy. No nuchal rigidity. Full range of motion against resistance. CVS: Normal heart rate and rhythm. Pulses normal. Respiratory: No respiratory distress. Breath sounds normal. Abdomen: Soft and nontender. Skin: Skin warm and dry. Normal skin color. Normal skin turgor. Extremities: No lower extremity edema. Moves all extremities against resistance. Gait well coordinated and well balanced. Neuro: No motor deficit. No sensory deficit. Cranial nerves 2-12 intact. Course Course Course Narrative: 40-year-old female presents with toothache with suspected abscess. Noted to be flossing several days ago and broke a tooth that was already broken. Patient is having a difficult time eating and drinking because of dental pain. Patient is nontoxic, afebrile, vital signs are stable and within normal limits. Will refer to emergency dental, provide Toradol and Augmentin. Patient will follow-up with dentist. Patient verbalized understanding of and agrees to plan of care discharge home. MDM - Dental/Oral Differential Diagnosis Differential diagnosis: Likely gingival abscess, dental caries, toothache, dental abscess and fracture of tooth Medical Records Attestation: I reviewed the patient's medical records. Lab Data Attestation: I reviewed the patient's lab results. Result diagrams: 05/16/21 20:31 05/16/21 20:31 Labs: Lab Results 05/16/21 05/16/21 05/16/21 Range/Units 20:31 20:31 20:31 WBC 11.7 H (4.8-10.8) X10*3/uL RBC 4.21 (4.20-5.50) X10*6/uL Hgb 11.6 L (12.0-16.0) g/dl Hct 36.7 L (37.0-47.0) % MCV 87.2 (80.0-98.0) fL MCH 27.6 (27.0-33.0) pg MCHC 31.6 (31.0-35.0) g/dl RDW 13.9 (11.0-16.0) % Plt Count 299 (160-400) X10*3/uL MPV 10.3 (9.4-12.3) fL Immature Gran % (Auto) 0.4 (0.0-0.4) % Neut % (Auto) 69.0 (45-73) % Lymph % (Auto) 23.1 (20-40) % [place] % (Auto) 5.9 (2-11) % Eos % (Auto) 1.3 (0-4) % Baso % (Auto) 0.3 (0-2) % Lymph # (Auto) 2.7 (1.2-4.9) X10*3/uL [place] # (Auto) 0.7 (0.1-1.2) X10*3/uL Eos # (Auto) 0.2 (0.0-0.4) X10*3/uL Baso # (Auto) 0.0 (0.0-0.2) X10*3/uL Abs Immat Gran (auto) 0.05 H (0.00-0.03) X10*3/uL Absolute Neuts (auto) 8.1 (2.0-8.3) x10*3/uL Absolute Nucleated RBC 0.000 (0.0-0.012) X10*3/uL Nucleated RBC % (auto) 0.0 (0.0-0.2) /100WBC ESR 34 H (0-20) MM/HR Sodium 139 (135-145) mmol/L Potassium 3.6 (3.3-5.1) mmol/L Chloride 110 H (96-108) mmol/L Carbon Dioxide 23 (22-29) mmol/L Anion Gap 10 L (12-20) BUN 11 (9-16) mg/dL Creatinine 0.72 (0.5-1.4) mg/dL Estim Creat Clear Calc 137.5 Estimated GFR > 60 Random Glucose 103 (60-115) mg/dL Calcium 9.1 (8.4-10.2) mg/dL Magnesium 1.9 (1.6-2.6) mg/dL Total Bilirubin 0.3 (0.0-1.0) mg/dL AST 15 (5-31) U/L ALT 17 (0-31) U/L Alkaline Phosphatase 70 (39-117) U/L C-Reactive Protein 4.35 H (< or = 0.50) mg/dL Total Protein 6.6 (6.5-8.0) g/dL Albumin 3.5 (3.5-5.0) g/dL Beta HCG, Quant < 2 mIU/mL Imaging Data Mandible x-ray: Attestation: I personally reviewed and interpreted this imaging study as follows: Radiologist's impression: EXAMINATION: XR MANDIBLE CLINICAL INFORMATION: Swelling. COMPARISON: None TECHNIQUE: 4 views of the mandible were obtained.? FINDINGS: There are no fractures or dislocations. No bone, joint or soft tissue abnormality is demonstrated. XR/XR mandible <4V IMPRESSION: Unremarkable examination. Discharge Plan Discharge Clinical Impression: Toothache, Dental caries, Dental abscess Patient Disposition: Home, Self-Care Instructions: Dental Abscess (ED), Toothache (ED) Additional Instructions: You were evaluated for dental caries and dental pain. Please follow-up with a dentist. Take Augmentin twice a day for the next 10 days. I prescribed Toradol, please follow the instructions. I gave you your 1st IM dose of Toradol 60 mg in the emergency department. Please do not take any Aleve or ibuprofen with this medication. You may take Tylenol every 6 hours as needed for breakthrough pain. Do not exceed 3000 mg of Tylenol. Please continue to use [id number] Orajel as needed for comfort. Follow the instructions on the package. X-rays are negative for acute findings. Labs are unremarkable, does show an elevated white count of 11.7 could possibly be consistent with dental infection. Thank you for choosing this emergency department for evaluation. Please follow-up with primary care physician as needed. Return to the emergency department for any new, concerning, or worsening symptoms. Prescriptions: New amoxicillin-pot clavulanate [Augmentin] 875-125 mg tablet 1 tab PO Q12H 10 Days Qty: 20 RF: 0 ketorolac 10 mg tablet 10 mg PO Q6H 5 Days Qty: 20 RF: 0 No Action cyclobenzaprine 10 mg tablet 10 mg PO Q8H Qty: 20 RF: 0 ketorolac 10 mg tablet 10 mg PO Q8H PRN (Reason: pain) Qty: 20 RF: 0 lidocaine [Lidoderm] 5 % adhesive patch,medicated 1 patch topical DAILY Qty: 15 RF: 0 oxycodone 5 mg tablet 5 mg PO BID PRN (Reason: pain) Qty: 20 RF: 0 acetaminophen [Tylenol Extra Strength] 500 mg tablet 1,000 mg PO QID PRN (Reason: fever or pain) Qty: 14 RF: 0 prednisone 20 mg tablet 40 mg PO DAILY 5 Days Qty: 10 RF: 0 ibuprofen 600 mg tablet 600 mg PO Q8H PRN (Reason: pain) Qty: 20 RF: 0 topiramate 100 mg tablet 100 mg PO BID RF: 0 sertraline [Zoloft] 100 mg tablet 100 mg PO DAILY RF: 0 dextroamphetamine-amphetamine [Adderall XR] 20 mg capsule,extended release 24hr 20 mg PO DAILY RF: 0 lorazepam 1 mg tablet 1 mg PO DAILY PRNRF: 0 buprenorphine-naloxone [Suboxone] 8-2 mg film 1 film buccal DAILY RF: 0 buprenorphine-naloxone [Suboxone] 2-0.5 mg film 1 film buccal DAILY RF: 0 Stand Alone Forms: Dental Emergency Numbers Interventions: ED Discharge Assessment Last Done: 05/16/21 21:53 Discharge Date/Time: 05/16/21 21:54
[2021-05-16 20:38] LABS: MANUAL DIFF FLAG NO
[2021-05-16 20:39] LABS: Basophils Percent Auto 0.3 % (0-2); Eosinophils Absolute Auto 0.2 X10*3/uL (0.0-0.4); Eosinophils Percent Auto 1.3 % (0-4); Hematocrit 36.7 % (37.0-47.0); Hemoglobin 11.6 g/dl (12.0-16.0); Imm Gran Abs Auto 0.05 X10*3/uL (0.00-0.03); Imm Gran Pct Auto 0.4 % (0.0-0.4); Lymphocytes Absolute Auto 2.7 X10*3/uL (1.2-4.9); Lymphocytes Percent Auto 23.1 % (20-40); Mean Corpuscular HGB Conc 31.6 g/dl (31.0-35.0); Mean Corpuscular Hemoglobin 27.6 pg (27.0-33.0); Mean Corpuscular Volume 87.2 fL (80.0-98.0); Mean Platelet Volume 10.3 fL (9.4-12.3); Monocytes Absolute Auto 0.7 X10*3/uL (0.1-1.2); Monocytes Percent Auto 5.9 % (2-11); Neutrophils Absolute Auto 8.1 x10*3/uL (2.0-8.3); Platelet Count 299 X10*3/uL (160-400); Red Blood Count 4.21 X10*6/uL (4.20-5.50); Red Cell Distribution Width 13.9 % (11.0-16.0); White Blood Count 11.7 X10*3/uL (4.8-10.8)
[2021-05-16] MEDS: Amoxicillin/Potassium Clav 875 MG TABLET PO (20:42)
[2021-05-16] MEDS: Ketorolac Tromethamine 60 MG/2 ML VIAL IM (20:42)
[2021-05-16 20:55] LABS: Alanine Aminotransferase 17 U/L (0-31); Albumin Level 3.5 g/dL (3.5-5.0); Alkaline Phosphatase 70 U/L (39-117); Anion Gap 10 (12-20); Aspartate Amino Transferase 15 U/L (5-31); Bilirubin Total 0.3 mg/dL (0.0-1.0); Blood Urea Nitrogen 11 mg/dL (9-16); C Reactive Protein 4.35 mg/dL (< or = 0.50); Calcium 9.1 mg/dL (8.4-10.2); Carbon Dioxide 23 mmol/L (22-29); Chloride 110 mmol/L (96-108); Creatinine Clr Calc Pharmacy 137.5; Estimated Glomerular Filt Rate > 60; Glucose Random 103 mg/dL (60-115); Magnesium 1.9 mg/dL (1.6-2.6); Potassium 3.6 mmol/L (3.3-5.1); Sodium 139 mmol/L (135-145); Total Protein 6.6 g/dL (6.5-8.0)
[2021-05-16 21:01] LABS: HCG Quantitative < 2 mIU/mL
[2021-05-16 21:26] LABS: Erythrocyte Sedimentation Rate 34 MM/HR (0-20)
[2021-05-16 21:51] VITALS: BP 129/75; PULSE 85; RESP 16; O2SAT 98
== END 2021-05-16 21:54 | disposition home or self-care (01) ==
PROVIDERS: Physician Assistant Medical; Emergency Provider Emergency Medicine; PCP Pediatrics
DX: R68.84 Jaw pain (principal); K02.9 Dental caries, unspecified; K04.7 Periapical abscess without sinus; F11.20 Opioid dependence, uncomplicated; F17.200 Nicotine dependence, unspecified, uncomplicated
CPT/HCPCS: 36415; 70100; 80053; 83735; 84702; 85025; 85652; 86140; 96372; 99284; J1885

== ENCOUNTER 2023-02-20 14:16 | Outpatient (REF) | payer OTHER, SELFPAY ==
[2023-02-20 17:07] LABS: Alanine Aminotransferase 20 U/L (0-31); Alkaline Phosphatase 71 U/L (39-117); Aspartate Amino Transferase 20 U/L (5-31); Bilirubin Direct 0.1 mg/dL (0.0-0.5); Bilirubin Total 0.3 mg/dL (0.0-1.0); Total Protein 7.6 g/dL (6.5-8.0)
[2023-02-21 03:58] LABS: Syphilis Screen Nonreactive (Nonreactive)
[2023-02-21 04:31] LABS: HBc Num1 0.07 S/CO (0.00-0.79); HBsAGNum1 0.35 S/CO (0.00-0.99); HIV AB/AG Nonreactive (Nonreactive); HIV Num 1 0.05 S/CO (0.00-0.99); Hepatitis B Core Antibody Nonreactive (Nonreactive); Hepatitis B Surface Antigen Negative (Negative); ~HepC Num1 0.07 S/CO (0.00-0.79); ~Hepatitis C Antibody Nonreactive (Nonreactive)
[2023-02-22 15:48] LABS: TS Negative Control Passed; TS Panel A 0; TS Panel B 1; TS Positive Control Passed; TSpotTB Negative (Negative)
== END 2023-02-20 14:17 | disposition home or self-care (01) ==
LOC: HO.HHCL 14:16
PROVIDERS: Visit Provider Emergency Medicine
DX: Z11.4 Encounter for screening for human immunodeficiency virus [HIV] (principal); Z11.1 Encounter for screening for respiratory tuberculosis; F11.20 Opioid dependence, uncomplicated
CPT/HCPCS: 36415; 80076; 86481; 86704; 86780; 86803; 87340; 87389

== ENCOUNTER 2023-04-08 17:19 | Emergency (ER) | payer MEDICARE, MEDICAID, SELFPAY ==
--- NOTE | ~2023-04-08 | CT_ITS ---
EXAMINATION: CT ABDOMEN AND PELVIS WITH CONTRAST CLINICAL INFORMATION: Pain. COMPARISON: None available. TECHNIQUE: Multidetector volumetric images were obtained from the superior aspect of the liver through the pubic symphysis following administration 85 mL of Omnipaque 350 intravenous contrast. Sagittal and coronal reformatted images were obtained on the technologist's workstation. Oral contrast: No This CT examination was performed using dose optimization techniques as appropriate, variously including the following: *Automated exposure control *Adjustment of mA and/or kV according to patient size (this includes techniques or standardized protocols for targeted exams where dose is matched to indication/reason for exam; i.e. extremities or head) *Use of iterative reconstruction technique DLP: 1234 mGy-cm FINDINGS: LUNG BASES: The visualized lung bases are unremarkable. LIVER, GALLBLADDER, AND BILIARY TREE: The liver is of mild diminished attenuation. No focal liver lesions are seen. There is no intrahepatic biliary duct dilatation. There has been a prior cholecystectomy. PANCREAS: There is partial fatty infiltration of the pancreas. SPLEEN: Unremarkable. ADRENAL GLANDS: Unremarkable. KIDNEYS AND URETERS: The kidneys are normal in size, shape, and attenuation. No hydronephrosis, hydroureter, or calculi seen. No perinephric stranding. BLADDER: Unremarkable. GASTROINTESTINAL TRACT: The small and large bowel are unremarkable. The appendix is not identified. ABDOMINAL WALL: No significant hernia is appreciated. LYMPH NODES: Normal. VASCULAR: Unremarkable. PELVIC VISCERA: There appears to be a posterior 4 cm uterine fibroid. OSSEOUS STRUCTURES: Unremarkable. CT/CT abdomen pelvis w IV con IMPRESSION: Mild fatty infiltration of the liver. Fibroid uterus. No evidence for acute intra-abdominal process. Fleischner guidelines were followed.
[2023-04-08 17:57] VITALS: BP 136/91; PULSE 108; RESP 18; TEMP 37.1; O2SAT 96; BMI 52.9
--- NOTE | 2023-04-08 17:58 | ED_ITS ---
HPI - General Adult General Chief complaint: Abdominal Pain Stated complaint: abd cramps Time Seen by Provider: 04/08/23 20:52 Source: patient Mode of arrival: ambulatory History of Present Illness HPI narrative: 42-year-old female who presents with lower abdominal pain and cramping this started approximately 4 days ago and is associated with nausea and some diarrhea but no vomiting and no fevers or chills but she reports cold sweats. Related Data Home Medications Medication Instructions Recorded Confirmed buprenorphine 2 mg-naloxone 0.5 mg 1 film buccal DAILY 03/18/20 sublingual film (Suboxone) buprenorphine 8 mg-naloxone 2 mg 1 film buccal DAILY 03/18/20 08/23/20 sublingual film (Suboxone) dextroamphetamine-amphetamine ER 20 mg PO DAILY 03/18/20 08/23/20 20 mg 24hr capsule,extend release (Adderall XR) lorazepam 1 mg tablet 1 mg PO DAILY PRN 03/18/20 08/23/20 sertraline 100 mg tablet (Zoloft) 100 mg PO DAILY 03/18/20 08/23/20 topiramate 100 mg tablet 100 mg PO BID 03/18/20 08/23/20 Previous Rx's Medication Instructions Recorded ibuprofen 600 mg tablet 600 mg PO Q8H PRN pain #20 tabs 08/05/20 acetaminophen 500 mg tablet 1,000 mg (2 x 500 mg) PO QID PRN 08/14/20 (Tylenol Extra Strength) fever or pain #14 tabs cyclobenzaprine 10 mg tablet 10 mg PO Q8H Muscle spasm #20 tabs 08/14/20 ketorolac 10 mg tablet 10 mg PO Q8H PRN pain #20 tabs 08/14/20 lidocaine 5 % topical patch 1 patch topical DAILY pain #15 ea 08/14/20 (Lidoderm) oxycodone 5 mg tablet 5 mg PO BID PRN pain #20 tabs 08/14/20 prednisone 20 mg tablet 40 mg (2 x 20 mg) PO DAILY back 08/14/20 pain 5 days #10 tabs amoxicillin 875 mg-potassium 1 tab PO Q12H 10 days #20 tabs 05/16/21 clavulanate 125 mg tablet (Augmentin) ketorolac 10 mg tablet 10 mg PO Q6H 5 days #20 tabs 05/16/21 Allergies Allergy/AdvReac Type Severity Reaction Status Date / Time varenicline [From CHANTIX] Allergy Intermediate HIVES Verified 08/23/20 15:24 Review of Systems 2 Review of Systems: Pertinent positives and negatives as stated in [facility] Past Medical History Source: nursing notes reviewed Medical History Opiate addiction Surgical History History of back surgery Hx of tonsillectomy History of loop electrical excision procedure (LEEP) Family History Family History Mother Breast cancer Maternal Grandmother Heart failure Breast cancer Social History Social History Alcohol intake: never Cigarettes Per Day: 5 Years Smoked: 20 Smoked in Last 30 Days: No Use of substances other than those prescribed or required for medical reasons: Yes Substance Use Type: Marijuana Substance Use Frequency: Chronic Longstanding Advance Directives: No Advance Directives Information Provided: No Patient : No Sexual orientation: Straight/Heterosexual Gender identity: Female Physical Exam ED Vital Signs: Vital Signs - 24 hr 04/08/23 17:57 04/08/23 22:48 Temperature 98.7 F 98.0 F Pulse Rate 108 H 71 Respiratory Rate 18 16 Blood Pressure 136/91 H 122/59 L Pulse Oximetry 96 98 Oxygen Delivery Method Room Air Room Air BMI result Body Mass Index 52.9 VITAL SIGNS: Reviewed. GENERAL: Well developed, well nourished, in no acute distress. HEAD: Normocephalic/atraumatic EYES: PERRLA, EOMI EARS: Ext canals without abnormality NOSE: Nares patent bilateral OROPHARYNX: no oral lesions noted, posterior pharynx clear NECK: Supple, no adenopathy LUNGS: Normal breath sounds. No adventitious sounds or accessory muscle use. SpO2<98> CARDIOVASCULAR: Regular rate and rhythm without noted murmurs ABDOMEN: Soft, non-tender, non-distended with bowel sounds. MUSCULOSKELETAL: No tenderness, deformities, or effusions noted on gross inspection. EXTREMITIES: No cyanosis, clubbing or edema. SKIN: Inspection of the skin reveals no rashes NEUROLOGIC: Alert and oriented x 4. Strength and sensation to light touch were grossly intact x 4. Course Course Course Narrative: RME performed by Christine Dhillon PA-C. Patient is a 42 year old assigned female at presenting to the emergency department with abdominal pain. Labs and swabs ordered. Patient placed back in the waiting room pending room availability and results. Medications Administered Discontinued Medications Generic Name Dose Route Start Last Admin Trade Name J Luisq PRN Reason Stop Dose Admin Iohexol 85 ml 04/08/23 23:20 04/08/23 23:21 Iohexol 350 Mg/Ml 100 Ml Infus..Btl IV 04/08/23 23:21 85 ml ONCE ONE Administration Medical Decision Making Medical Decision Making MDM Narrative: 42-year-old female with history and clinical presentation, DDX: gastroenteritis, UTI, renal colic, appendicitis, ectopic I reviewed all investigations hematologic indices significant for leukocytosis but no left shift and no anemia or thrombocytopenia. Coagulation studies are within normal limits. Chem is chemistry indices he is to not demonstrate an YNES and there are no electrolyte or liver enzyme derangements. beta hCG is undetectable. urinalysis is negative for UTI or hematuria. Viral testing is negative for RSV / influenza / COVID-19. CT scan does not demonstrate any evidence to support appendicitis/ renal colic. My interpretation is patient has lower abdominal discomfort that may be associated with menstrual cycle, patient decided to leave prior to getting her discharge paperwork but was noted to otherwise be hemodynamically stable. Differential Diagnosis Differential Diagnoses: The differential diagnosis associated with the presentation includes Please see the discussion above Admission/Observation Consideration of admission/observation: Escalation of care including admission/observation considered please see the discussion above Lab Data [facility] Lab Attestation statement: I reviewed the patient's lab results. please see the discussion above 04/08/23 18:10 04/08/23 18:10 Labs: Lab Results 04/08/23 04/08/23 Range/Units 18:10 18:16 WBC 14.2 H (4.8-10.8) X10*3/uL RBC 5.06 D (4.20-5.50) X10*6/uL Hgb 14.0 D (12.0-16.0) g/dl Hct 43.2 (37.0-47.0) % MCV 85.4 (80.0-98.0) fL MCH 27.7 (27.0-33.0) pg MCHC 32.4 (31.0-35.0) g/dl RDW 13.8 (11.0-16.0) % Plt Count 385 D (160-400) X10*3/uL MPV 9.9 (9.4-12.3) fL Immature Gran % (Auto) 0.4 (0.0-0.4) % Neut % (Auto) 65.9 (45-73) % Lymph % (Auto) 26.4 (20-40) % [place] % (Auto) 5.6 (2-11) % Eos % (Auto) 1.2 (0-4) % Baso % (Auto) 0.5 (0-2) % Lymph # (Auto) 3.8 (1.2-4.9) X10*3/uL [place] # (Auto) 0.8 (0.1-1.2) X10*3/uL Eos # (Auto) 0.2 (0.0-0.4) X10*3/uL Baso # (Auto) 0.1 (0.0-0.2) X10*3/uL Abs Immat Gran (auto) 0.06 H (0.00-0.03) X10*3/uL Absolute Neuts (auto) 9.4 H (2.0-8.3) x10*3/uL Absolute Nucleated RBC 0.000 (0.0-0.012) X10*3/uL Nucleated RBC % (auto) 0.0 (0.0-0.2) /100WBC PT 11.8 (11.1-13.3) SEC INR 1.0 (0.9-1.1) APTT 32.9 (26.0-36.4) SEC Sodium 134 L (135-145) mmol/L Potassium 3.9 (3.3-5.1) mmol/L Chloride 105 (96-108) mmol/L Carbon Dioxide 20 L (22-29) mmol/L Anion Gap 13 (12-20) BUN 10 (9-16) mg/dL Creatinine 0.72 (0.5-1.4) mg/dL Estim Creat Clear Calc 130.3 Estimated GFR > 60 Random Glucose 97 (60-115) mg/dL Calcium 9.4 (8.4-10.2) mg/dL Magnesium 1.9 (1.6-2.6) mg/dL Total Bilirubin 0.3 (0.0-1.0) mg/dL AST 22 (5-31) U/L ALT 25 (0-31) U/L Alkaline Phosphatase 69 (39-117) U/L Total Protein 7.9 (6.5-8.0) g/dL Albumin 4.1 (3.5-5.0) g/dL Lipase 11 (8-78) U/L Beta HCG, Quant < 2 mIU/mL Urine Color Dark Yellow Urine Appearance Clear Urine pH 5.5 (5.0-9.0) Ur Specific [place] >= 1.030 H (1.005-1.025) Urine Protein Negative (Neg-Trace) mg/dL Urine Glucose (UA) Negative (Negative) mg/dL Urine Ketones Trace (Negative) mg/dL Urine Blood Negative (Negative) Urine Nitrite Negative (Negative) Ur Leukocyte Esterase Negative (Negative) Influenza Type A (PCR) NEGATIVE (Negative) Influenza Type B (PCR) NEGATIVE (Negative) RSV RNA Qual (PCR) NEGATIVE (Negative) SARS-CoV-2 RNA (RT-PCR) NEGATIVE (Negative) Radiology Impression Discussion of test interpretation with radiology: I have reviewed the radiologist's reading. Radiologist Impression: please see the discussion above ling bauman get back External Record Review External record reviewed: Outpatient record, Prior outpatient labs and Prior outpatient radiology Discharge Plan Discharge Clinical Impression: Abdominal discomfort Patient Disposition: Elopement Prescriptions: No Action cyclobenzaprine 10 mg tablet 10 mg PO Q8H Qty: 20 0RF ketorolac 10 mg tablet 10 mg PO Q8H PRN (Reason: pain) Qty: 20 0RF Rx Instructions: Given 1st dose in the ED lidocaine [Lidoderm] 5 % adhesive patch,medicated 1 patch topical DAILY Qty: 15 0RF Rx Instructions: leave on most painful area for up to 12 hrs. May be substituted oxycodone 5 mg tablet 5 mg PO BID PRN (Reason: pain) Qty: 20 0RF acetaminophen [Tylenol Extra Strength] 500 mg tablet 1,000 mg PO QID PRN (Reason: fever or pain) Qty: 14 0RF prednisone 20 mg tablet 40 mg PO DAILY 5 Days Qty: 10 0RF ibuprofen 600 mg tablet 600 mg PO Q8H PRN (Reason: pain) Qty: 20 0RF amoxicillin-pot clavulanate [Augmentin] 875-125 mg tablet 1 tab PO Q12H 10 Days Qty: 20 0RF ketorolac 10 mg tablet 10 mg PO Q6H 5 Days Qty: 20 0RF topiramate 100 mg tablet 100 mg PO BID Patient Comments: 300 mg am, 300 mg pm sertraline [Zoloft] 100 mg tablet 100 mg PO DAILY Patient Comments: 200 mg am dextroamphetamine-amphetamine [Adderall XR] 20 mg capsule,extended release 24hr 20 mg PO DAILY Patient Comments: 40 mg am lorazepam 1 mg tablet 1 mg PO DAILY PRN buprenorphine-naloxone [Suboxone] 8-2 mg film 1 film buccal DAILY buprenorphine-naloxone [Suboxone] 2-0.5 mg film 1 film buccal DAILY Rx Instructions: place 1 strip/tab under (each) side of tongue Discharge Date/Time: 04/09/23 02:13
[2023-04-08 18:13] LABS: MANUAL DIFF FLAG NO
[2023-04-08 18:15] LABS: Basophils Absolute Auto 0.1 X10*3/uL (0.0-0.2); Basophils Percent Auto 0.5 % (0-2); Eosinophils Absolute Auto 0.2 X10*3/uL (0.0-0.4); Eosinophils Percent Auto 1.2 % (0-4); Hematocrit 43.2 % (37.0-47.0); Imm Gran Abs Auto 0.06 X10*3/uL (0.00-0.03); Imm Gran Pct Auto 0.4 % (0.0-0.4); Lymphocytes Absolute Auto 3.8 X10*3/uL (1.2-4.9); Lymphocytes Percent Auto 26.4 % (20-40); Mean Corpuscular HGB Conc 32.4 g/dl (31.0-35.0); Mean Corpuscular Hemoglobin 27.7 pg (27.0-33.0); Mean Corpuscular Volume 85.4 fL (80.0-98.0); Mean Platelet Volume 9.9 fL (9.4-12.3); Monocytes Absolute Auto 0.8 X10*3/uL (0.1-1.2); Monocytes Percent Auto 5.6 % (2-11); Neutrophils Absolute Auto 9.4 x10*3/uL (2.0-8.3); Neutrophils Percent Auto 65.9 % (45-73); Platelet Count 385 X10*3/uL (160-400); Red Blood Count 5.06 X10*6/uL (4.20-5.50); Red Cell Distribution Width 13.8 % (11.0-16.0); White Blood Count 14.2 X10*3/uL (4.8-10.8)
[2023-04-08 18:35] LABS: Alanine Aminotransferase 25 U/L (0-31); Albumin Level 4.1 g/dL (3.5-5.0); Alkaline Phosphatase 69 U/L (39-117); Anion Gap 13 (12-20); Aspartate Amino Transferase 22 U/L (5-31); Bilirubin Total 0.3 mg/dL (0.0-1.0); Blood Urea Nitrogen 10 mg/dL (9-16); Calcium 9.4 mg/dL (8.4-10.2); Carbon Dioxide 20 mmol/L (22-29); Chloride 105 mmol/L (96-108); Creatinine Clr Calc Pharmacy 130.3; Estimated Glomerular Filt Rate > 60; Glucose Random 97 mg/dL (60-115); Lipase 11 U/L (8-78); Magnesium 1.9 mg/dL (1.6-2.6); Potassium 3.9 mmol/L (3.3-5.1); Sodium 134 mmol/L (135-145); Total Protein 7.9 g/dL (6.5-8.0)
[2023-04-08 18:36] LABS: HCG Quantitative < 2 mIU/mL
[2023-04-08 18:51] LABS: Influenza A PCR NEGATIVE (Negative); Influenza B PCR NEGATIVE (Negative); Resp Syncy Virus RNA Qual PCR NEGATIVE (Negative); SARS COV2 PCR INHOUSE NEGATIVE (Negative)
[2023-04-08 21:14] LABS: Prothrombin Time 11.8 SEC (11.1-13.3)
[2023-04-08 21:17] LABS: Partial Thromboplastin Time 32.9 SEC (26.0-36.4)
[2023-04-08 22:48] VITALS: BP 122/59; PULSE 71; RESP 16; TEMP 36.7; O2SAT 98
--- NOTE | 2023-04-08 23:04 | PC.NURSE ---
vss and up to date. 20gIV placed in right AC w/o difficulty. pt waiting to go to CT. partner bedside. call melendez placed within reach.
--- NOTE | 2023-04-08 23:16 | PC.NURSE ---
pt to CT at this time.
[2023-04-08] MEDS: iohexoL 350 MG/ML 100 ML INFUS..BTL 85 ML IV (23:21)
--- NOTE | 2023-04-09 02:12 | PC.NURSE ---
pt assessed, pt upset and wants to leave. Dr. Herrera aware, pt left AMA, encouraged pt to follow up with PCP
== END 2023-04-09 02:13 | disposition left against medical advice (07) ==
PROVIDERS: Physician Assistant Medical; Emergency Provider Student in an Organized Health Care Education/Training Program; PCP Pediatrics
DX: R10.30 Lower abdominal pain, unspecified (principal); R11.0 Nausea; R19.7 Diarrhea, unspecified; Z20.822 Contact with and (suspected) exposure to COVID-19; Z20.828 Contact with and (suspected) exposure to other viral communicable diseases; F11.20 Opioid dependence, uncomplicated; E66.9 Obesity, unspecified; Z68.43 Body mass index [BMI] 50.0-59.9, adult
CPT/HCPCS: 0241U; 74177; 80053; 81003; 83690; 83735; 84702; 85025; 85610; 85730; 99284; Q9967

== ENCOUNTER 2023-07-25 10:59 | Outpatient (REF) | payer OTHER, MEDICAID, SELFPAY ==
[2023-07-25 14:49] LABS: MANUAL DIFF FLAG NO
[2023-07-25 15:13] LABS: Basophils Absolute Auto 0.1 X10*3/uL (0.0-0.2); Basophils Percent Auto 0.5 % (0-2); Eosinophils Absolute Auto 0.2 X10*3/uL (0.0-0.4); Eosinophils Percent Auto 1.7 % (0-4); Hematocrit 42.4 % (37.0-47.0); Hemoglobin 13.5 g/dl (12.0-16.0); Imm Gran Abs Auto 0.05 X10*3/uL (0.00-0.03); Imm Gran Pct Auto 0.5 % (0.0-0.4); Lymphocytes Absolute Auto 2.6 X10*3/uL (1.2-4.9); Lymphocytes Percent Auto 25.2 % (20-40); Mean Corpuscular HGB Conc 31.8 g/dl (31.0-35.0); Mean Corpuscular Hemoglobin 28.4 pg (27.0-33.0); Mean Corpuscular Volume 89.1 fL (80.0-98.0); Mean Platelet Volume 10.5 fL (9.4-12.3); Monocytes Absolute Auto 0.6 X10*3/uL (0.1-1.2); Monocytes Percent Auto 5.8 % (2-11); Neutrophils Absolute Auto 6.9 x10*3/uL (2.0-8.3); Neutrophils Percent Auto 66.3 % (45-73); Platelet Count 315 X10*3/uL (160-400); Red Blood Count 4.76 X10*6/uL (4.20-5.50); White Blood Count 10.5 X10*3/uL (4.8-10.8)
[2023-07-25 18:15] LABS: Anion Gap 13 (12-20); Blood Urea Nitrogen 9 mg/dL (9-16); Calcium 9.7 mg/dL (8.4-10.2); Carbon Dioxide 22 mmol/L (22-29); Chloride 105 mmol/L (96-108); Cholesterol 205 mg/dL (<200); Estimated Glomerular Filt Rate > 60; Glucose Fasting 105 mg/dL (60-99); HDL Cholesterol 45 mg/dL (>40); LDL Cholesterol Calculated 136 mg/dL (<100); Potassium 3.4 mmol/L (3.3-5.1); Sodium 137 mmol/L (135-145); Triglycerides 124 mg/dL (<150)
[2023-07-25 18:23] LABS: TSH reflex Free T4 4.72 uIU/mL (0.32-4.0); Vitamin D 25-OH Total 25.9 ng/mL (>30)
[2023-07-25 18:54] LABS: Free T4 (Free Thyroxine) 0.99 ng/dL (0.71-1.85)
== END 2023-07-25 11:00 | disposition home or self-care (01) ==
LOC: HO.CHCLDS 10:59
PROVIDERS: Visit Provider Pediatrics
DX: E11.9 Type 2 diabetes mellitus without complications (principal)
CPT/HCPCS: 36415; 80048; 80061; 82306; 84439; 84443; 85025

== ENCOUNTER 2023-09-28 17:54 | Outpatient (REF) | payer OTHER, SELFPAY | END 2023-09-28 17:55 | disposition home or self-care (01) | LOC: HO.HHCLNP 17:54 | PROVIDERS: Visit Provider Nurse Practitioner Family | DX: R39.9 Unspecified symptoms and signs involving the genitourinary system (principal) | CPT/HCPCS: 87086 ==

== ENCOUNTER 2024-05-24 11:18 | Emergency (ER) | payer OTHER, SELFPAY ==
[2024-05-24 11:20] VITALS: BP 149/84; PULSE 63; RESP 20; TEMP 36.2; O2SAT 100; BMI 49.9
[2024-05-24] MEDS: Ondansetron ODT 4 MG TAB.RAPDIS TRANSLINGU (11:26)
--- NOTE | 2024-05-24 11:26 | ED.ABDPAIN ---
HPI - Abdominal Pain General Chief Complaint: Abdominal Pain Stated Complaint: n/v/d Time Seen by Provider: 05/24/24 14:46 Source: patient Limitations: no limitations History of Present Illness ED Provider: Francheska Estrella NP HPI narrative: Patient is a 43-year-old female who presents emergency department for evaluation, reports that she awoke today with epigastric abdominal pain nausea, vomiting bilious nonbloody emesis, and multiple episodes of watery stool, chills. She admits to a history of cholecystectomy. Reports that she ate dominoes last night, her ate this as well though a very small amount and he was experiencing stomach upset earlier today as well. She denies alcohol consumption. Reports a history of diabetes but has not been on any medications for over a year after she had lost weight reportedly no longer needed it. She took Pepto-Bismol at home without much improvement. Reports otherwise was feeling well prior to this onset today. Denies known fever, chest pain, shortness of breath, lower abdominal pain, back pain, urogenital symptoms. Denies any recent hematochezia, melena. No pelvic pain or abnormal vaginal discharge, denies concern for , denies concern for sexually transmitted infections. Related Data Home Medications ?Medication ?Instructions ?Recorded ?Confirmed buprenorphine 2 mg-naloxone 0.5 mg 1 film buccal DAILY 03/18/20 sublingual film (Suboxone) buprenorphine 8 mg-naloxone 2 mg 1 film buccal DAILY 03/18/20 08/23/20 sublingual film (Suboxone) dextroamphetamine-amphetamine ER 20 mg PO DAILY 03/18/20 08/23/20 20 mg 24hr capsule,extend release (Adderall XR) lorazepam 1 mg tablet 1 mg PO DAILY PRN 03/18/20 08/23/20 sertraline 100 mg tablet (Zoloft) 100 mg PO DAILY 03/18/20 08/23/20 topiramate 100 mg tablet 100 mg PO BID 03/18/20 08/23/20 Previous Rx's ?Medication ?Instructions ?Recorded ibuprofen 600 mg tablet 600 mg PO Q8H PRN pain #20 tabs 08/05/20 acetaminophen 500 mg tablet 1,000 mg (2 x 500 mg) PO QID PRN 08/14/20 (Tylenol Extra Strength) fever or pain #14 tabs cyclobenzaprine 10 mg tablet 10 mg PO Q8H Muscle spasm #20 tabs 08/14/20 ketorolac 10 mg tablet 10 mg PO Q8H PRN pain #20 tabs 08/14/20 lidocaine 5 % topical patch 1 patch topical DAILY pain #15 ea 08/14/20 (Lidoderm) oxycodone 5 mg tablet 5 mg PO BID PRN pain #20 tabs 08/14/20 prednisone 20 mg tablet 40 mg (2 x 20 mg) PO DAILY back 08/14/20 pain 5 days #10 tabs amoxicillin 875 mg-potassium 1 tab PO Q12H 10 days #20 tabs 05/16/21 clavulanate 125 mg tablet (Augmentin) ketorolac 10 mg tablet 10 mg PO Q6H 5 days #20 tabs 05/16/21 ondansetron 4 mg disintegrating 4 mg PO Q8H PRN nausea and 05/24/24 tablet vomiting #10 tabs Allergies Allergy/AdvReac Type Severity Reaction Status Date / Time varenicline [From CHANTIX] Allergy Intermediate HIVES Verified 05/24/24 11:21 Review of Systems Review of Systems Yes all other systems are reviewed and are negative [facility] Past Medical History Attestation statement: The following information was validated with the patient. Source: old records reviewed Medical History Opiate addiction Surgical History History of back surgery Hx of tonsillectomy History of loop electrical excision procedure (LEEP) Family History Family History Mother Breast cancer Maternal Grandmother Heart failure Breast cancer Social History Social History (System 07/27/23 @ 12:08 by Mariam Rosado) Alcohol intake: never Cigarettes Per Day: 5 Years Smoked: 20 Smoked in Last 30 Days: No Substance Use Type: Marijuana Advance Directives: No Advance Directives Information Provided: Yes Do you have a plan to hurt others: No Plan Sexual orientation: Straight/Heterosexual Gender identity: Female Physical Exam ED Vital Signs: Vital Signs - 24 hr 05/24/24 11:20 05/24/24 15:22 Temperature 97.1 F 98.6 F Pulse Rate 63 50 Respiratory Rate 20 18 Blood Pressure 149/84 H Pulse Oximetry 100 98 Oxygen Delivery Method Room Air Room Air BMI result Body Mass Index 49.9 Appearance: Alert.?Oriented to person, place and time. No acute distress.?Normal affect.?? Neck: Normal inspection.? Neck supple.?? CVS: Heart sounds normal. Normal heart rate and rhythm.? Pulses normal.?? Respiratory: No respiratory distress.? Lung sounds clear to auscultation bilaterally?? Abdomen: Soft with epigastric tenderness upon palpation. No rebound tenderness at McBurney's point. Negative psoas sign. Negative Rovsing sign. Negative Joy sign. No CVAT. Normoactive bowel sounds. No pulsatile mass.?? Skin: Skin warm and dry.? Normal skin color.? Extremities: No lower extremity edema.? Neuro: Moves all extremities spontaneously. Sensation intact bilaterally. Ambulates with normal steady gait. Course Course Course Narrative: This is a Rapid Medical Examination (RME) performed by Joan Feldman PA-C in triage. Full HPI, ROS, assessment and treatment plan per primary provider in the Main ED. 43 yo female hx obesity, asthma, anxiety, depression, opiate dependence on suboxone here for eval of epigastric abdominal pain, nausea, vomiting, diarrhea upon waking this morning. Reports eating dominos last night. Her at home has similar GI symptoms, he consumed dominos as well. denies ETOH consumption. denies hx of similar. took pepto bismol [employer]. surgical hx: cholecystectomy Plan: labs, covid, UA, u preg Reevaluation(s) Reevaluation #1: Patient with significant improvement in symptoms after medicated, minimal nausea but tolerating oral intake without vomiting. Pain has subsided. Requesting discharge home which I feel is reasonable at this time. He will be discharged home with prescription for Zofran, discussed bland diet, strict return precautions. All questions answered. Stable for discharge Medical Decision Making Medical Decision Making MDM Narrative: Patient is a 42-year-old female with past medical history obesity, asthma, anxiety, depression, opiate use disorder on Suboxone presenting for evaluation of epigastric abdominal pain nausea vomiting diarrhea as per HPI. The time my evaluation she appears uncomfortable particularly after palpation of the epigastric region which is notably tender, otherwise has been is without pertinent findings, no rigidity or guarding. She is afebrile without tachycardia tachypnea or hypoxia. No associated chest pain shortness of breath or URI symptoms to suggest pneumonia, no clinical evidence of DVT or personal history of VTE/malignancy to suggest pulmonary embolism. She is without chest pain, lower suspicion for ACS, unlikely AAA, aortic dissection. No right upper quadrant abdominal tenderness upon palpation, history of cholecystectomy, lower suspicion for CBD stone given normal LFTs/lipase. Tenderness upon palpation over the epigastrium, concerning for likely a gastritis as etiology of symptoms, no recent hematemesis history less likely to suggest PUD. Denies excessive alcohol consumption, diabetes, lower suspicion acute pancreatitis. Lower abdominal examination is benign unlikely acute appendicitis, diverticulitis, no evidence of GI B, no obvious hernia to suggest strangulation/incarceration, lower suspicion of bowel obstruction. No associated genitourinary symptoms to suggest UTI/pyelonephritis, renal colic, hydronephrosis. hCG is negative, unlikely ectopic , lower clinical suspicion for TOA/torsion. Trial symptomatic management with 1 L normal saline IV fluid, Zofran IV, Pepcid IV in addition to Maalox with lidocaine viscous once nausea improved somewhat Differential Diagnosis Differential Diagnoses: The differential diagnosis associated with the presentation includes (See narrative above) Admission/Observation Consideration of admission/observation: Escalation of care including admission/observation considered (See narrative above ) Lab Data MDM Lab Attestation statement: I reviewed the patient's lab results. CBC revealing a mild leukocytosis 11,100, no anemia or thrombocytopenia. Acute electrolyte derangement. Metabolic acidosis with bicarb of 18, normal anion back, no hyperglycemia, no YNES, of these lipase within normal range. Urinalysis without evidence of infection or microscopic hematuria. HCG is negative 05/24/24 11:45 05/24/24 11:45 Labs: Lab Results 05/24/24 Range/Units 11:45 WBC 11.1 H (4.8-10.8) X10*3/uL RBC 4.70 (4.20-5.50) X10*6/uL Hgb 14.0 (12.0-16.0) g/dl Hct 41.9 (37.0-47.0) % MCV 89.1 (80.0-98.0) fL MCH 29.8 (27.0-33.0) pg MCHC 33.4 (31.0-35.0) g/dl RDW 13.9 (11.0-16.0) % Plt Count 255 (160-400) X10*3/uL MPV 10.6 (9.4-12.3) fL Immature Gran % (Auto) 0.5 H (0.0-0.4) % Neut % (Auto) 64.7 (45-73) % Lymph % (Auto) 26.9 (20-40) % [place] % (Auto) 5.9 (2-11) % Eos % (Auto) 1.4 (0-4) % Baso % (Auto) 0.6 (0-2) % Lymph # (Auto) 3.0 (1.2-4.9) X10*3/uL [place] # (Auto) 0.7 (0.1-1.2) X10*3/uL Eos # (Auto) 0.2 (0.0-0.4) X10*3/uL Baso # (Auto) 0.1 (0.0-0.2) X10*3/uL Abs Immat Gran (auto) 0.05 H (0.00-0.03) X10*3/uL Absolute Neuts (auto) 7.2 (2.0-8.3) x10*3/uL Absolute Nucleated RBC 0.000 (0.0-0.012) X10*3/uL Nucleated RBC % (auto) 0.0 (0.0-0.2) /100WBC Sodium 141 (135-145) mmol/L Potassium 3.4 (3.3-5.1) mmol/L Chloride 114 H (96-108) mmol/L Carbon Dioxide 18 L (22-29) mmol/L Anion Gap 12 (12-20) BUN 13 (9-16) mg/dL Creatinine 0.76 (0.5-1.4) mg/dL Estim Creat Clear Calc 117.7 Estimated GFR > 60 Random Glucose 108 (60-115) mg/dL Calcium 9.2 (8.4-10.2) mg/dL Magnesium 2.0 (1.6-2.6) mg/dL Total Bilirubin 0.2 (0.0-1.0) mg/dL AST 19 (5-31) U/L ALT 13 (0-31) U/L Alkaline Phosphatase 63 (39-117) U/L C-Reactive Protein 0.39 (< or = 0.50) mg/dL Total Protein 7.2 (6.5-8.0) g/dL Albumin 3.9 (3.5-5.0) g/dL Lipase 17 (8-78) U/L Urine Color Dark Yellow Urine Appearance Turbid Urine pH 5.5 (5.0-9.0) Ur Specific [place] 1.025 (1.005-1.025) Urine Protein 30 (1+) H (Neg-Trace) mg/dL Urine Glucose (UA) Negative (Negative) mg/dL Urine Ketones Trace (Negative) mg/dL Urine Blood Negative (Negative) Urine Nitrite Negative (Negative) Ur Leukocyte Esterase Negative (Negative) Urine RBC 0-2 (0-2) /HPF Urine WBC 0-5 (0-5) /HPF Ur Squamous Epith Cells >20 (0-2) /HPF Urine Bacteria Trace (None Seen) Hyaline Casts 6-10 (0-2) /LPF Urine Test NEGATIVE (NEGATIVE) COVID-19 (PARVEEN) Negative (Negative) COVID-19 Clin Com See Note Independent Historian Clinical information obtained from an independent historian. History obtained from or confirmed by: Spouse External Record Review External record reviewed: Outpatient record Chronic Conditions Patient?s care impacted by: Other (See narrative above) Medications Administered Generic Name Dose Route Start Last Admin Trade Name Freq PRN Reason Stop Dose Admin Sodium Chloride 1,000 mls @ 999 mls/hr 05/24/24 15:15 05/24/24 15:12 Ns IV 05/24/24 16:15 999 mls/hr .[id number] ALESSANDRO Administration Discontinued Medications Generic Name Dose Route Start Last Admin Trade Name Freq PRN Reason Stop Dose Admin Acetaminophen 650 mg 05/24/24 11:56 05/24/24 12:28 Acetaminophen 325 Mg Tablet PO 05/24/24 11:57 650 mg ONCE ONE Administration Al Hydroxide/Mg Hydroxide 30 ml 05/24/24 15:02 05/24/24 15:45 Magnesium Hydrox/Alum Hydrox 30 Ml Oral.Susp PO 05/24/24 15:03 30 ml ONCE ONE Administration Famotidine 20 mg 05/24/24 15:02 05/24/24 15:18 Famotidine/Pf 20 Mg/2 Ml Vial IVPUSH 05/24/24 15:03 20 mg ONCE ONE Administration Lidocaine HCl 15 ml 05/24/24 15:02 05/24/24 15:45 Lidocaine Hcl Viscous 2 % 15 Ml Solution MUCOUS MEM 05/24/24 15:03 15 ml ONCE ONE Administration Ondansetron HCl 4 mg 05/24/24 11:23 05/24/24 11:26 Ondansetron Odt 4 Mg Tab.Rapdis TRANSLINGU 05/24/24 11:24 4 mg ONCE ONE Administration Ondansetron HCl 4 mg 05/24/24 15:02 05/24/24 15:18 Ondansetron Hcl 4 Mg/2 Ml Vial IVPUSH 05/24/24 15:03 4 mg ONCE ONE Administration Discharge Plan Discharge Clinical Impression: Gastritis Patient Disposition: Home, Self-Care Instructions: Gastritis (ED) Additional Instructions: Introduce a bland diet including crackers, bananas, rice, soup, toast, and boiled vegetables. This may progress to plain baked or boiled chicken or turkey. Avoid dairy products or foods high in fat or grease. Tristan has been sent to your pharmacy to take as needed for nausea/vomiting. Continue your medications as prescribed. Be sure that you are staying well hydrated, drinking plenty of fluids. If you continue to experienced multiple episodes of diarrhea you may consider the use of [id number] Imodium. Prescriptions: New ondansetron 4 mg tablet,disintegrating 4 mg PO Q8H PRN (Reason: nausea and vomiting) Qty: 10 0RF No Action cyclobenzaprine 10 mg tablet 10 mg PO Q8H Qty: 20 0RF ketorolac 10 mg tablet 10 mg PO Q8H PRN (Reason: pain) Qty: 20 0RF Rx Instructions: Given 1st dose in the ED lidocaine [Lidoderm] 5 % adhesive patch,medicated 1 patch topical DAILY Qty: 15 0RF Rx Instructions: leave on most painful area for up to 12 hrs. May be substituted oxycodone 5 mg tablet 5 mg PO BID PRN (Reason: pain) Qty: 20 0RF acetaminophen [Tylenol Extra Strength] 500 mg tablet 1,000 mg PO QID PRN (Reason: fever or pain) Qty: 14 0RF prednisone 20 mg tablet 40 mg PO DAILY 5 Days Qty: 10 0RF ibuprofen 600 mg tablet 600 mg PO Q8H PRN (Reason: pain) Qty: 20 0RF amoxicillin-pot clavulanate [Augmentin] 875-125 mg tablet 1 tab PO Q12H 10 Days Qty: 20 0RF ketorolac 10 mg tablet 10 mg PO Q6H 5 Days Qty: 20 0RF topiramate 100 mg tablet 100 mg PO BID Patient Comments: 300 mg am, 300 mg pm sertraline [Zoloft] 100 mg tablet 100 mg PO DAILY Patient Comments: 200 mg am dextroamphetamine-amphetamine [Adderall XR] 20 mg capsule,extended release 24hr 20 mg PO DAILY Patient Comments: 40 mg am lorazepam 1 mg tablet 1 mg PO DAILY PRN buprenorphine-naloxone [Suboxone] 8-2 mg film 1 film buccal DAILY buprenorphine-naloxone [Suboxone] 2-0.5 mg film 1 film buccal DAILY Rx Instructions: place 1 strip/tab under (each) side of tongue Referrals: Renu Mchugh MD [Primary Care Provider] - Print Language: Belarusian
[2024-05-24 11:56] LABS: MANUAL DIFF FLAG NO
[2024-05-24 11:57] LABS: Basophils Absolute Auto 0.1 X10*3/uL (0.0-0.2); Basophils Percent Auto 0.6 % (0-2); Eosinophils Absolute Auto 0.2 X10*3/uL (0.0-0.4); Eosinophils Percent Auto 1.4 % (0-4); Hematocrit 41.9 % (37.0-47.0); Imm Gran Abs Auto 0.05 X10*3/uL (0.00-0.03); Imm Gran Pct Auto 0.5 % (0.0-0.4); Lymphocytes Percent Auto 26.9 % (20-40); Mean Corpuscular HGB Conc 33.4 g/dl (31.0-35.0); Mean Corpuscular Hemoglobin 29.8 pg (27.0-33.0); Mean Corpuscular Volume 89.1 fL (80.0-98.0); Mean Platelet Volume 10.6 fL (9.4-12.3); Monocytes Absolute Auto 0.7 X10*3/uL (0.1-1.2); Monocytes Percent Auto 5.9 % (2-11); Neutrophils Absolute Auto 7.2 x10*3/uL (2.0-8.3); Neutrophils Percent Auto 64.7 % (45-73); Platelet Count 255 X10*3/uL (160-400); Red Cell Distribution Width 13.9 % (11.0-16.0); White Blood Count 11.1 X10*3/uL (4.8-10.8)
[2024-05-24 11:59] LABS: Appearance Urine Turbid; Color Urine Dark Yellow; Glucose Urine UA Negative (Negative); Leukocyte Esterase Urine Negative (Negative); Nitrite Urine Negative (Negative); PH 5.5 (5.0-9.0); Specific Gravity - Urine 1.025 (1.005-1.025); UMIC TRIGGER UACC YES; Urine Blood Negative (Negative); Urine Ketones Trace mg/dL (Negative); Urine Protein 30 (1+) mg/dL (Neg-Trace)
[2024-05-24 12:09] LABS: UPreg QC Valid YES; Urine Pregnancy NEGATIVE (NEGATIVE)
[2024-05-24 12:11] LABS: Bacteria Urine Trace (None Seen); RBC Urine 0-2 /HPF (0-2); Squamous Epithelial Cell Urine >20 /HPF (0-2); WBC Urine 0-5 /HPF (0-5)
[2024-05-24 12:12] LABS: COVID-19 Test Negative (Negative); IDNOW Serial# 55D5AD1C
[2024-05-24 12:16] LABS: Alanine Aminotransferase 13 U/L (0-31); Albumin Level 3.9 g/dL (3.5-5.0); Alkaline Phosphatase 63 U/L (39-117); Anion Gap 12 (12-20); Aspartate Amino Transferase 19 U/L (5-31); Bilirubin Total 0.2 mg/dL (0.0-1.0); Blood Urea Nitrogen 13 mg/dL (9-16); C Reactive Protein 0.39 mg/dL (< or = 0.50); Calcium 9.2 mg/dL (8.4-10.2); Carbon Dioxide 18 mmol/L (22-29); Chloride 114 mmol/L (96-108); Creatinine Clr Calc Pharmacy 117.7; Estimated Glomerular Filt Rate > 60; Glucose Random 108 mg/dL (60-115); Lipase 17 U/L (8-78); Potassium 3.4 mmol/L (3.3-5.1); Sodium 141 mmol/L (135-145); Total Protein 7.2 g/dL (6.5-8.0)
[2024-05-24] MEDS: Acetaminophen 325 MG TABLET 650 MG PO (12:28)
[2024-05-24] MEDS: 0.9 % Sodium Chloride 1,000 ML 999 ML IV (15:12)
[2024-05-24] MEDS: Famotidine/PF 20 MG/2 ML VIAL IVPUSH (15:18)
[2024-05-24] MEDS: ondansetron HCL 4 MG/2 ML VIAL IVPUSH (15:18)
[2024-05-24 15:22] VITALS: PULSE 50; RESP 18; TEMP 37; O2SAT 98
[2024-05-24] MEDS: Lidocaine HCl Viscous 2 % 15 ML SOLUTION MUCOUS MEM (15:45)
[2024-05-24] MEDS: Magnesium Hydrox/Alum Hydrox 30 ML ORAL.SUSP PO (15:45)
[2024-05-24 16:42] VITALS: BP 121/79; PULSE 62; RESP 16; TEMP 36.6; O2SAT 98
== END 2024-05-24 16:44 | disposition home or self-care (01) ==
PROVIDERS: Physician Assistant Medical; Emergency Provider Emergency Medicine; PCP Pediatrics
DX: K52.9 Noninfective gastroenteritis and colitis, unspecified (principal); R11.2 Nausea with vomiting, unspecified; J45.909 Unspecified asthma, uncomplicated; F11.20 Opioid dependence, uncomplicated; Z90.49 Acquired absence of other specified parts of digestive tract; Z79.899 Other long term (current) drug therapy; Z11.52 Encounter for screening for COVID-19
CPT/HCPCS: 36415; 80053; 81001; 81025; 83690; 83735; 85025; 86140; 87635; 96361; 96374; 96375; 99284; J2405

== ENCOUNTER 2025-02-16 12:48 | Emergency (ER) | payer OTHER, SELFPAY ==
--- NOTE | 2025-02-16 12:49 | ECG_ITS ---
Test Reason : CP Blood Pressure : */* mmHG Vent. Rate : 81 BPM Atrial Rate : 81 BPM P-R Int : 144 ms QRS Dur : 88 ms QT Int : 384 ms P-R-T Axes : 43 38 46 degrees QTcB Int : 446 ms Normal sinus rhythm Normal ECG No previous ECGs available Referred By: Generic ED Physician Electronically Signed By: Joel Brady
[2025-02-16 13:10] VITALS: BP 175/99; PULSE 88; RESP 16; TEMP 36.8; O2SAT 97; BMI 38.6
--- NOTE | 2025-02-16 13:11 | ED.CHESTPAIN ---
HPI - Chest Pain General Chief Complaint: Chest Pain Stated Complaint: Chest Pain Time Seen by Provider: 02/16/25 16:48 Source: patient Mode of arrival: ambulatory Limitations: no limitations History of Present Illness ED Provider: Dr. Ca Hudson HPI narrative: Patient comes to the emergency room complaining of intermittent chest pain for about a month. Patient states that around this time of year, she experiences chest pain, which in the correlates with her mother's anniversary. At this time, patient states that she feels better, no chest pain at this time, no shortness of breath. Patient denies shortness of breath, no nausea vomiting or diarrhea, no fever chills, no URI symptoms. Related Data Home Medications ?Medication ?Instructions ?Recorded ?Confirmed buprenorphine 2 mg-naloxone 0.5 mg 1 film buccal DAILY 03/18/20 sublingual film (Suboxone) buprenorphine 8 mg-naloxone 2 mg 1 film buccal DAILY 03/18/20 08/23/20 sublingual film (Suboxone) dextroamphetamine-amphetamine ER 20 mg PO DAILY 03/18/20 08/23/20 20 mg 24hr capsule,extend release (Adderall XR) lorazepam 1 mg tablet 1 mg PO DAILY PRN 03/18/20 08/23/20 sertraline 100 mg tablet (Zoloft) 100 mg PO DAILY 03/18/20 08/23/20 topiramate 100 mg tablet 100 mg PO BID 03/18/20 08/23/20 Previous Rx's ?Medication ?Instructions ?Recorded ibuprofen 600 mg tablet 600 mg PO Q8H PRN pain #20 tabs 08/05/20 acetaminophen 500 mg tablet 1,000 mg (2 x 500 mg) PO QID PRN 08/14/20 (Tylenol Extra Strength) fever or pain #14 tabs cyclobenzaprine 10 mg tablet 10 mg PO Q8H Muscle spasm #20 tabs 08/14/20 ketorolac 10 mg tablet 10 mg PO Q8H PRN pain #20 tabs 08/14/20 lidocaine 5 % topical patch 1 patch topical DAILY pain #15 ea 08/14/20 (Lidoderm) oxycodone 5 mg tablet 5 mg PO BID PRN pain #20 tabs 08/14/20 prednisone 20 mg tablet 40 mg (2 x 20 mg) PO DAILY back 08/14/20 pain 5 days #10 tabs amoxicillin 875 mg-potassium 1 tab PO Q12H 10 days #20 tabs 05/16/21 clavulanate 125 mg tablet (Augmentin) ketorolac 10 mg tablet 10 mg PO Q6H 5 days #20 tabs 05/16/21 ondansetron 4 mg disintegrating 4 mg PO Q8H PRN nausea and 05/24/24 tablet vomiting #10 tabs Allergies Allergy/AdvReac Type Severity Reaction Status Date / Time varenicline (From CHANTIX) Allergy Intermediate HIVES Verified 02/16/25 13:11 Review of Systems Review of Systems: Constitutional : No Weight loss, No Fever, No Chills, No Night Sweats, No Fatigue, No Malaise ENT/Mouth : No Hearing loss, No Ear Pain, No Nasal Congestion, No Sinus Pain, No Hoarseness, No sore throat, No Rhinorrhea, No Swallowing Difficulty Eyes: No Eye Pain, No Swelling, No Redness, No Foreign Body, No Discharge, No Vision Changes Cardiovascular : Complaining of intermittent chest pain for about a month, no chest pain present at this time. She has been coincides with patient's mother's anniversary. No SOB, No Dyspnea on Exertion, No Orthopnea, No Edema, No Palpitations Respiratory : No Cough, No Sputum, No Wheezing, No Smoke Exposure, No Dyspnea Gastrointestinal : No Nausea, No Vomiting, No Diarrhea, No Constipation, No abdominal Pain, No Hematochezia, No Melena Genitourinary : no irregular bleeding, No Dysuria, No Urinary Frequency, No Hematuria, No Urinary Incontinence, No Urgency, No Flank Pain, No Urinary Flow Changes, No Hesitancy Musculoskeletal : No joint pain, No Myalgias, No Joint Swelling Skin : No Skin Lesions, No rash Neuro : No Weakness, No Numbness, No Paresthesias, No Loss of Consciousness, No Dizziness, No Headache Psych : No Anxiety/Panic, No Depression, No SI/HI/AH/VH, No Social Issues, Heme/Lymph: No Bruising, No Bleeding,No Lymphadenopathy Endocrine : No Polyuria, No Polydipsia, No Temperature Intolerance [facility] Past Medical History Medical History Opiate addiction Surgical History History of back surgery Hx of tonsillectomy History of loop electrical excision procedure (LEEP) Family History Family History Mother Breast cancer Maternal Grandmother Heart failure Breast cancer Social History Social History (System 07/27/23 @ 12:08 by Mariam Rosado) Alcohol intake: never Cigarettes Per Day: 5 Years Smoked: 20 Smoked in Last 30 Days: Yes Substance Use Type: Marijuana Advance Directives: No Advance Directives Information Provided: Yes Sexual orientation: Straight/Heterosexual Gender identity: Female Physical Exam Exam: Exam: Appearance: Alert. Oriented X3. No acute distress. Eating Doritos Eyes: Pupils equal, round and reactive to light. ENT: Pharynx normal. Neck: Normal inspection. Neck supple. No lymph nodes noted. No crepitus CVS: Normal heart rate and rhythm. Pulses normal. Normal S1 and S2, no reproducible chest pain Respiratory: No respiratory distress. Breath sounds normal. No Wheezing. No rales Abdomen: Soft and nontender. No rigidity. No distention. Skin: Skin warm and dry. Normal skin color. Normal skin turgor. Extremities: No lower extremity edema. No Lacerations. No Rash Neuro: Oriented X 3. No motor deficit. No sensory deficit. Moving all extremities. No slurred speech. CN 2 through 12 grossly intact Psych: calm, cooperative, normal affect Vital Signs: Vital Signs: Last Vital Signs Temp 97.3 F 02/16/25 16:20 Pulse 59 02/16/25 16:20 Resp 16 02/16/25 16:20 BP 127/63 02/16/25 16:20 Pulse Ox 100 02/16/25 16:20 O2 Del Method Room Air 02/16/25 16:20 BMI result Body Mass Index 38.6 Course Course Course Narrative: This is a Rapid Medical Examination (RME) performed by Jaon Feldman PA-C in triage. Full HPI, ROS, assessment and treatment plan per primary provider in the Main ED. Hx: 44 yo F here for eval of intermittent left sided chest pain x1 mo. no sob. stopped adderral x1 week to see if this would help however chest pain persisted. reports increased stress about her mother who passed around this time of year. has been prescribed ativan for this however does not like how it makes her feel. Plan: labs, ekg Medical Decision Making Medical Decision Making [facility] Narrative: My interpretation of EKG: Normal sinus rhythm, heart rate 81, no ST segment depression or elevation, no T-wave inversion, QTC 446 My interpretation of labs: No significant abnormality in patient's hematology and chemistry, normal LFTs and troponin, normal lipase Physical exam reassuring, patient well-appearing, eating, no chest pain at this time. I discussed with the patient that the next ideal step is to be referred through her primary care physician to Cardiology for a stress test if her PCP considered as this is indicated Differential Diagnosis Differential Diagnoses: The differential diagnosis associated with the presentation includes (ACS, anxiety, muscle spasms) Admission/Observation Consideration of admission/observation: Escalation of care including admission/observation considered (Given patient's age and length of symptoms, observation was considered) Lab Data [facility] Lab Attestation statement: I reviewed the patient's lab results. 02/16/25 13:30 02/16/25 13:30 Labs: Lab Results 02/16/25 Range/Units 13:30 WBC 9.8 (4.8-10.8) X10*3/uL RBC 4.85 (4.20-5.50) X10*6/uL Hgb 14.4 (12.0-16.0) g/dl Hct 42.1 (37.0-47.0) % MCV 86.8 (80.0-98.0) fL MCH 29.7 (27.0-33.0) pg MCHC 34.2 (31.0-35.0) g/dl RDW 13.0 (11.0-16.0) % Plt Count 274 (160-400) X10*3/uL MPV 10.2 (9.4-12.3) fL Immature Gran % (Auto) 0.3 (0.0-0.4) % Neut % (Auto) 70.2 (45-73) % Lymph % (Auto) 23.1 (20-40) % Lipscomb % (Auto) 5.1 (2-11) % Eos % (Auto) 0.9 (0-4) % Baso % (Auto) 0.4 (0-2) % Lymph # (Auto) 2.3 (1.2-4.9) X10*3/uL Lipscomb # (Auto) 0.5 (0.1-1.2) X10*3/uL Eos # (Auto) 0.1 (0.0-0.4) X10*3/uL Baso # (Auto) 0.0 (0.0-0.2) X10*3/uL Abs Immat Gran (auto) 0.03 (0.00-0.03) X10*3/uL Absolute Neuts (auto) 6.9 (2.0-8.3) x10*3/uL Absolute Nucleated RBC 0.000 (0.0-0.012) X10*3/uL Nucleated RBC % (auto) 0.0 (0.0-0.2) /100WBC Sodium 137 (135-145) mmol/L Potassium 3.4 (3.3-5.1) mmol/L Chloride 109 H (96-108) mmol/L Carbon Dioxide 21 L (22-29) mmol/L Anion Gap 10 L (12-20) BUN 12 (9-16) mg/dL Creatinine 0.76 (0.5-1.4) mg/dL Estim Creat Clear Calc 112.0 Estimated GFR > 60 Random Glucose 116 H (60-115) mg/dL Calcium 8.9 (8.4-10.2) mg/dL Magnesium 2.0 (1.6-2.6) mg/dL Total Bilirubin 0.5 (0.0-1.0) mg/dL AST 23 (5-31) U/L ALT 20 (0-31) U/L Alkaline Phosphatase 62 (39-117) U/L Troponin I High Sens < 2.7 (<3.5-17.0) ng/L Total Protein 7.3 (6.5-8.0) g/dL Albumin 4.1 (3.5-5.0) g/dL Lipase 11 (8-78) U/L Independent Interpretation I performed an independent interpretation of an: EKG Critical Care Time Critical Care Time Critical Care Time: Yes Total Critical Care Time: 35 Attestation: I have personally provided critical care time. Time includes review of lab data, radiology results, discussion with consultants, and monitoring for potential decompensation. Intervention performed as documented. Discharge Plan Discharge Clinical Impression: Atypical chest pain Patient Disposition: Home, Self-Care Instructions: Noncardiac Chest Pain (ED), Chest Pain (ED) Additional Instructions: Please follow-up with your primary care physician tomorrow. If you have any worsening or new symptoms, please return to the emergency room or call 911 Prescriptions: No Action cyclobenzaprine 10 mg tablet 10 mg PO Q8H Qty: 20 0RF ketorolac 10 mg tablet 10 mg PO Q8H PRN (Reason: pain) Qty: 20 0RF Rx Instructions: Given 1st dose in the ED lidocaine [Lidoderm] 5 % adhesive patch,medicated 1 patch topical DAILY Qty: 15 0RF Rx Instructions: leave on most painful area for up to 12 hrs. May be substituted oxycodone 5 mg tablet 5 mg PO BID PRN (Reason: pain) Qty: 20 0RF acetaminophen [Tylenol Extra Strength] 500 mg tablet 1,000 mg PO QID PRN (Reason: fever or pain) Qty: 14 0RF prednisone 20 mg tablet 40 mg PO DAILY 5 Days Qty: 10 0RF ibuprofen 600 mg tablet 600 mg PO Q8H PRN (Reason: pain) Qty: 20 0RF amoxicillin-pot clavulanate [Augmentin] 875-125 mg tablet 1 tab PO Q12H 10 Days Qty: 20 0RF ketorolac 10 mg tablet 10 mg PO Q6H 5 Days Qty: 20 0RF ondansetron 4 mg tablet,disintegrating 4 mg PO Q8H PRN (Reason: nausea and vomiting) Qty: 10 0RF topiramate 100 mg tablet 100 mg PO BID Patient Comments: 300 mg am, 300 mg pm sertraline [Zoloft] 100 mg tablet 100 mg PO DAILY Patient Comments: 200 mg am dextroamphetamine-amphetamine [Adderall XR] 20 mg capsule,extended release 24hr 20 mg PO DAILY Patient Comments: 40 mg am lorazepam 1 mg tablet 1 mg PO DAILY PRN buprenorphine-naloxone [Suboxone] 8-2 mg film 1 film buccal DAILY buprenorphine-naloxone [Suboxone] 2-0.5 mg film 1 film buccal DAILY Rx Instructions: place 1 strip/tab under (each) side of tongue Print Language: [place]se
[2025-02-16 14:00] LABS: Hematocrit 42.1 % (37.0-47.0); Hemoglobin 14.4 g/dl (12.0-16.0); Imm Gran Abs Auto 0.03 X10*3/uL (0.00-0.03); Imm Gran Pct Auto 0.3 % (0.0-0.4); Lymphocytes Absolute Auto 2.3 X10*3/uL (1.2-4.9); MANUAL DIFF FLAG NO; Mean Corpuscular HGB Conc 34.2 g/dl (31.0-35.0); Mean Corpuscular Hemoglobin 29.7 pg (27.0-33.0); Mean Corpuscular Volume 86.8 fL (80.0-98.0); NRBC Abs Auto 0.000 X10*3/uL (0.0-0.012); NRBC Pct Auto 0.0 /100WBC (0.0-0.2); Platelet Count 274 X10*3/uL (160-400); Red Blood Count 4.85 X10*6/uL (4.20-5.50); White Blood Count 9.8 X10*3/uL (4.8-10.8)
[2025-02-16 14:16] LABS: Alanine Aminotransferase 20 U/L (0-31); Albumin Level 4.1 g/dL (3.5-5.0); Alkaline Phosphatase 62 U/L (39-117); Anion Gap 10 (12-20); Aspartate Amino Transferase 23 U/L (5-31); Blood Urea Nitrogen 12 mg/dL (9-16); Calcium 8.9 mg/dL (8.4-10.2); Carbon Dioxide 21 mmol/L (22-29); Chloride 109 mmol/L (96-108); Creatinine Clr Calc Pharmacy 112.0; Estimated Glomerular Filt Rate > 60; Lipase 11 U/L (8-78); Magnesium 2.0 mg/dL (1.6-2.6); Potassium 3.4 mmol/L (3.3-5.1); Sodium 137 mmol/L (135-145); Total Protein 7.3 g/dL (6.5-8.0)
[2025-02-16 14:23] LABS: Troponin-I High Sensitivity < 2.7 ng/L (<3.5-17.0)
[2025-02-16 16:20] VITALS: BP 127/63; PULSE 59; RESP 16; TEMP 36.3; O2SAT 100
[2025-02-16 17:31] VITALS: BP 127/63; PULSE 59; RESP 16; TEMP 36.3; O2SAT 100
--- OUTSIDE RECORDS SUMMARY | 2025-02-16 18:19 | XMS_ITS | Encounter Summary ---
Demographics Address [address] [place] [id number] Mobile Phone Home Phone Email Address Preferred Language en Marital Status Evangelical Affiliation Unknown Race White Ethnic Group Unknown
--- OUTSIDE RECORDS SUMMARY | 2025-02-16 18:19 | XMS_ITS | Encounter Summary ---
Demographics Address [address] [place] [id number] Mobile Phone Home Phone Email Address Preferred Language en Marital Status Hinduism Affiliation Unknown Race White
== END 2025-02-16 17:32 | disposition home or self-care (01) ==
PROVIDERS: Physician Assistant Medical; Emergency Provider Emergency Medicine; PCP Pediatrics
DX: R07.89 Other chest pain (principal)
CPT/HCPCS: 36415; 80053; 83690; 83735; 84484; 85025; 93005; 99283; 99284

== ENCOUNTER → 2025-02-16 12:49 | Outpatient (BNV) | payer OTHER, SELFPAY | PROVIDERS: Emergency Provider Emergency Medicine; PCP Pediatrics; Visit Provider Internal Medicine Cardiovascular Disease | DX: R07.89 Other chest pain (principal) | CPT/HCPCS: 93010 ==